=== PATIENT | female | born 1985 | race Caucasian/White ===

== ENCOUNTER 2017-03-25 19:27 | Inpatient (IN) | payer SELFPAY ==
[2017-03-25] MEDS ORDERED: NS 1,000 ML IV ONE (19:51)
--- NOTE | 2017-03-25 20:15 | EDPHY ---
H & P Stated Complaint: SI with OD, approx x25 10mg since this am, Hx of depression Source: Patient, Family, RN/MD Exam Limitations: No limitations - Medical/Surgical History Hx Asthma: No Hx Chronic Respiratory Disease: No Hx Diabetes: No Hx Cardiac Disease: No Hx Renal Disease: No Hx Cirrhosis: No Hx Alcoholism: Yes Hx HIV/AIDS: No Hx Splenectomy or Spleen Trauma: No Other PMH: depression, dystonia, addenoidectomy HPI/ROS: CHIEF COMPLAINT: Attempted suicide, Ambien overdose, NyQuil overdose HISTORY OF PRESENT ILLNESS: Patient presents with mother and friend of the mother. The mother and patient report that she ingested pills with intent to harm herself today. The patient says that she took approximately 25 of her mother's 10 mg Ambien pills between 10:00 a.m. and 2:00 p.m.. She did so with intent to kill herself. She does not want to harm herself at this time but admits to doing so with the intent of killing herself. She then reports drinking a small amount of NyQuil this morning. She then drank further amount of NyQuil this evening. She is unable to quantify the volume of this. She does describe physically and diluted in some water. She last ingested the NyQuil at 7:00 p.m.. This is per the mother who took the drink away from her in route. She has a history of depression and previous suicide attempt by cutting her arms and ingestion of pills and illegal substances in the past. She was last admitted for suicidal attempt 2 years ago. She does not see a psychiatrist or counselor on a regular basis. She lives in [place] most of her time and is here with her family at this time. She arrives voluntarily with her mother. No M1 was completed prior to arrival. No other associated complaints or modifying factors. PSYCHIATRIC DIAGNOSES: Depression, previous suicidal ideation and cutting of the arms. Movement disorder PRIOR PSYCHIATRIC EVALUATIONS: A 2 years ago. No current therapy or care M1/DETAINER: 8:[address] Delgado REVIEW OF SYSTEMS: Ten systems reviewed and are negative unless otherwise noted in the HPI EXAMINATION General Appearance: Alert, no distress Head: normocephalic, atraumatic Eyes: Pupils equal and round, no conjunctival pallor or injection ENT, Mouth: Mucous membranes moist Neck: Normal inspection, supple, non-tender Respiratory: Lungs are clear to auscultation Cardiovascular: Regular rate and rhythm Gastrointestinal: Abdomen is soft and nontender Back: non-tender, no bony abnormalities Neurological: GCS 15. A&O, nonfocal, normal gait. Mild dystonia that is reportedly baseline. Skin: Warm and dry, no rash. There are superficial skin lacerations on the volar aspect of both forearms. These are subacute. Extremities: Nontender, no pedal edema Psychiatric: Flat affect. Admits to suicidal ideation this morning. She currently denies wanting to harm herself DIFFERENTIAL DIAGNOSES: Including but not limited to overdose, suicide attempt, suicidal ideation, somnolence, dehydration, acidosis MDM: 8:10 p.m. Attempted suicide by twenty five 10 mg Ambien pills between 10:00 a.m. at 2:00 p.m. today. She is remorseful this but does admit to doing so. She had intent to kill herself. She is cooperative and calm at this time. She has baseline is 20 per mother bedside. I have completed an M1 form, this has been signed by Dr. Delgado. She remains cooperative and in no acute distress at this time. Will monitor her with cardiac monitoring, pulse oximetry due to the attempted overdose. 8:30 p.m. Notified by a RN Virgil. He discussed with poison control. Case #[id number]. There is no recommendation for the Ambien ingestion. There is a recommendation of a 4 hour Tylenol level due to the ingestion of the NyQuil cough medicine. I have rediscussed this with the family, both the family and patient say that she last drank the NyQuil at around 7:00 p.m.. We will obtain LFTs and a 4 hour level at appropriate time. She remains cooperative at this time. 10:20 p.m. LFTs reveal a mild transaminitis. Due to this we of contacted poison Control again. I discussed the case with Ralph. Duty LFT elevation, he recommends that we initiate the N-acetylcysteine protocol. They recommend rechecking that Tylenol level at 1:00 a.m. prior to the last 1st bag administration. Routine protocol instructions. At this time will contact hospitalist for admission. Additionally I have updated the patient and her mother bedside regarding the findings and the scenario. She remains awake and alert in no acute distress. 10:[address] Delgado as discussed the case with Dr. Daniel. He has admitted the patient to ICU. She is admitted in stable condition. SUPERVISION: Patient was evaluated in conjunction with the supervising physician. Please see their note for details. (Laci Byrd) Constitutional: Initial Vital Signs Temperature (C) 37.3 C 03/25/17 19:52 Heart Rate 80 03/25/17 19:52 Respiratory Rate 14 03/25/17 19:52 Blood Pressure 130/84 H 03/25/17 19:52 O2 Sat (%) 95 03/25/17 19:52 O2 Delivery Mode Room Air Allergies/Adverse Reactions: No Known Allergies Allergy (Unverified 10/27/09 18:13) Home Medications: Medication Instructions Recorded Zolpidem Tartrate [Ambien 10 mg] 10 mg PO HS 10/27/09 Citalopram [CeleXA] 20 mg PO DAILY 03/25/17 clonazePAM [klonoPIN (*)] 1 mg PO BID 03/25/17 Medical Decision Making - Diagnostics EKG Interpretation: 12-lead EKG interpreted by me; official reading is in trace master. My interpretation is sinus rhythm with nonspecific anterior T-wave abnormalities rate 62. Otherwise normal intervals. (Konrad Delgado) Other Provider: PHYSICIAN DOCUMENTATION: The patient was evaluated and managed by the Physician [employer] and myself. I have reviewed the chart and agree with the findings and plan of care as documented. In addition, I examined the patient myself at 2020. History confirmed as overdose with attempt to harm self. Physical findings as follows: Patient alert and talking, placed on a mental health hold by Laci STEWART and myself. 2215: Acetaminophen 16 and elevated liver function tests, probably at least 2 separate NyQuil/acetaminophen ingestions. Discussed with poison control by Carson CHOI and [facility] recommends admission with IV N-acetylcysteine protocol. Total critical care time 15 minutes. I am the secondary supervising physician. (Konrad Delgado) - Data Points Laboratory Results: Laboratory Results 03/25/17 20:07 03/25/17 20:07 Medications Given: Discontinued Medications Sodium Chloride (Ns) 1,000 mls @ 0 mls/hr IV ONCE ONE; Wide Open PRN Reason: Protocol Stop: 03/25/17 19:52 Last Admin: 03/25/17 19:57 Dose: 1,000 mls Acetylcysteine 7,050 mg/ (Dextrose) 200 mls @ 200 mls/hr IV ONCE ONE Stop: 03/25/17 23:59 Last Admin: 03/25/17 23:02 Dose: 200 mls Acetylcysteine 2,350 mg/ (Dextrose) 500 mls @ 125 mls/hr IV ONCE ONE Stop: 03/26/17 03:59 Last Admin: 03/26/17 00:37 Dose: 500 mls Departure - Departure Disposition: [facility] Acute Clinical Impression: Suicidal ideation, Abnormal liver function Deliberate medication overdose Qualifiers: Encounter type: initial encounter Qualified Code(s): T50.902A - Poisoning by unspecified drugs, medicaments and biological substances, intentional self-harm , initial encounter Acetaminophen overdose Qualifiers: Encounter type: initial encounter Injury intent: intentional self-harm Qualified Code(s): T39.1X2A - Poisoning by 4-Aminophenol derivatives, intentional self-harm, initial encounter Condition: Fair
[2017-03-25 20:18] LABS: % IMMATURE GRANULYOCYTES 0.4 % (0.0-1.1); ABSOLUTE IMMATURE GRANULOCYTES 0.02 10^3/uL (0.00-0.10); ADD DIFF? NO; ADD MORPH? NO; ADD SCAN? NO; ATYPICAL LYMPHOCYTE FLAG 30 (0-99); FRAGMENT RBC FLAG 0 (0-99); HEMATOCRIT 34.2 % (38.0-47.0); HEMOGLOBIN 11.8 g/dL (12.6-16.3); LEFT SHIFT FLG 0 (0-99); LIPEMIA HEMOLYSIS FLAG 90 (0-99); MEAN CELL HEMOGLOBIN 35.1 pg (27.9-34.1); MEAN CELL HEMOGLOBIN CONCENTR. 34.5 g/dL (32.4-36.7); MEAN CELL VOLUME 101.8 fL (81.5-99.8); MEAN PLATELET VOLUME 9.4 fL (8.7-11.7); PLATELET CLUMPS FLAG 0 (0-99); PLATELET COUNT 285 10^3/uL (150-400); RED BLOOD CELL COUNT 3.36 10^6/uL (4.18-5.33); RED CELL DISTRIBUTION WIDTH 12.9 % (11.5-15.2)
--- NOTE | 2017-03-25 20:23 | CPEKG ---
Heart Rate: 62 RR Interval: 968 P-R Interval: 164 QRSD Interval: 108 QT Interval: 412 QTC Interval: 419 P [place]: 53 QRS [place]: 41 T Wave [place]: 13 EKG Severity - BORDERLINE ECG - EKG Impression: SINUS RHYTHM EKG Impression: BORDERLINE T ABNORMALITIES, ANTERIOR LEADS Electronically Signed By: Konrad Delgado 25-Mar-2017 20:42:38
[2017-03-25 20:31] LABS: ANION GAP 14 mEq/L (8-16); CARBON DIOXIDE 20 mEq/l (22-31); CHLORIDE 106 mEq/L (97-110); CREATININE 0.7 mg/dL (0.6-1.0); ETHANOL SERUM < 10 mg/dL (0-10); GLOMERULAR FILTRATION RATE > 60; GLUCOSE 82 mg/dL (70-100); POTASSIUM 4.4 mEq/L (3.5-5.2); SALICYLATE < 1.0 mg/dL (2.0-20.0); SODIUM 140 mEq/L (134-144)
[2017-03-25 21:09] LABS: INR 0.99 (0.83-1.16)
[2017-03-25 21:11] LABS: ALBUMIN 4.4 g/dL (3.5-5.0); BILIRUBIN-CONJUGATED 0.7 mg/dL (0.0-0.5); BILIRUBIN-UNCONJUGATED 0.3 mg/dL (0.0-1.1)
[2017-03-25] MEDS ORDERED: ACETYLCYSTEINE IV PROTOCOL 1 EACH MISC SCH (22:15)
[2017-03-25] MEDS ORDERED: D5W IV ONE (23:00)
[2017-03-25] MEDS ORDERED: ACETYLCYSTEINE IV ONE (23:00)
[2017-03-25 23:32] LABS: PHENCYCLIDINE URINE BCH < 6 ng/ml (NEGATIVE); PHENCYCLIDINE URINE BCH NEGATIVE (NEGATIVE); TETRAHYDROCANNABINOL URINE < 5 ng/mL (NEGATIVE); TETRAHYDROCANNABINOL URINE NEGATIVE (NEGATIVE)
--- NOTE | 2017-03-26 01:18 | GHP ---
[f rep st] HISTORY AND PHYSICAL DATE OF ADMISSION: 03/25/2017 CHIEF COMPLAINT: Attempted overdose. HISTORY OF PRESENT ILLNESS: This is a 31-year-old female, accompanied by her mother as well as her neighbor, who presents after attempted overdose. She apparently this morning took about 25 Ambien. This was around 10 a.m. She then woke up, her mother came over. She went into the bathroom and dr ank a bottle of NyQuil. Her mother does not have the bottle with her. Apparently, she drank about half a cup of NyQuil. She also had a knife in the bathroom. She was clearly depressed at the time. Her mother stopped her before she was able to cut herself. Mother then brought her to the emergen cy department. She had mixed the NyQuil with water and proceeded to drink a little bit more of the NyQuil on the way to the emergency department. She has a history of mental health issues. Her mother says that she is not overtly suicidal, though she had significant depression and more wants to numb this pain. She has a history of dystonia whi ch causes her to have an odd speech, which her mother says makes her very self-conscious. She has t ried to kill herself multiple times in the past. She has also been cutting herself recently, though none within the last few weeks. She has a history of heavy drinking, though she has not had anythi ng to drink for 2 weeks. She had a prescription for Klonopin and she has taken a significant amount over the past 2 weeks. When I am seeing the patient, she is very somnolent. She will arouse to voice. She is not providin g much history at this point, however. PAST MEDICAL/SURGICAL HISTORY: 1. Dystonia, she had a recent MRI done in [facility]; results are not available currently. 2. Insomnia. 3. Anxiety. 4. Depression. MEDICATIONS: Mother tells me she takes Ambien, NyQuil, Klonopin, Celexa. ALLERGIES: No known drug allergies. FAMILY HISTORY: Father was an alcoholic. SOCIAL HISTORY: She drinks as above. She lives in the [facility], came down to the [place] about 1 week ago. Other abuse history as above. She has done cocaine but never IV drugs, p er her mother. REVIEW OF SYSTEMS: A 10-point review of systems is conducted and is negative except per HPI. PHYSICAL EXAM: VITAL SIGNS: Blood pressure is 110/67, heart rate 72, respiration rate 12, saturati ng 93% on room air. Temperature is 37.3. GENERAL: The patient is a pleasant female who is quite s omnolent, arouses to voice. HEENT: Normocephalic, atraumatic. CARDIOVASCULAR: Regular rate and r hythm. No murmurs, rubs, or gallops. PULMONARY: Lungs clear to auscultation bilaterally. ABDOMEN : She has a soft abdomen, though she does have some right upper quadrant tenderness with negative M urphy sign. SKIN: Shows her to have mild superficial, well healing cuts on her bilateral forearms. She also has some similar aged cuts on her abdomen that are very superficial and healing well. NE UROLOGIC: She is quite somnolent, though she does arouse. She is moving all extremities. Cranial nerves 2-12 are intact. She has no nystagmus. PSYCHIATRIC: Exam is unobtainable. LABS: Hemoglobin 11.8, MCV is 101. INR is 0.99. Basic metabolic panel is normal. ALT is 575, AST is 84, alkaline phosphatase is normal. Conjugated bilirubin slightly high at 0.7. Tox screen is n egative. Salicylates are less than 1. Acetaminophen is 16. Alcohol level is negative. DATA: 1. I discussed this with SHIVA Michelle, as well as Dr. Chan. We will admit her to the ICU. 2. I personally viewed and interpreted her EKG. This shows sinus rhythm. She has somewhat biphasi c T-wave in leads V3 and V4. Otherwise, it is relatively unremarkable. ASSESSMENT AND PLAN: A 31-year-old female with intentional overdose with NyQuil as well as Ambien. 1. NyQuil overdose: This contains acetaminophen as well as potentially dextromethorphan, doxylamin e, phenylephrine. She has significantly elevated LFTs, though her acetaminophen level is negative. Poison Control case #[id number]. Even though she has a low Tylenol level, recommend NAC protocol. We will recheck a Tylenol level in a few hours as well as in the morning. She does not have an antich olinergic toxidrome, nor did she have a sympathomimetic toxidrome. 2. Ambien overdose: Very short half-life. This was taken in the morning. Per Poison Control, no further workup is necessary. I do note that she is very somnolent; however, her vitals are stable. 3. Elevated liver function tests: I am not sure that this is related to Tylenol. It is not the no rmal ratio for alcohol, either, though she does have macrocytic anemia. We will go ahead and check a right upper quadrant ultrasound as she was tender to palpation with an equivocal Pascual sign. We will also check a hepatitis panel. We will recheck her LFTs in the morning. 4. Suicide attempt: She is on M1 hold. She will need a mental health evaluation at some point. 5. Dystonia: She had an MRI done recently though her mother does not have the results of this. Vicki hayward will attempt to get this. It is not clear exactly what the underlying diagnosis is. The MRI was done in [facility]. 6. Somnolence: We will monitor her closely in the ICU. Her vitals are stable. /[id number]/MODL
[2017-03-26] MEDS ORDERED: ACETYLCYSTEINE IV ONE ×3 (04:00→21:00)
[2017-03-26] MEDS ORDERED: D5W IV ONE ×3 (04:00→21:00)
[2017-03-26 05:46] LABS: % IMMATURE GRANULYOCYTES 0.5 % (0.0-1.1); ABSOLUTE IMMATURE GRANULOCYTES 0.02 10^3/uL (0.00-0.10); ADD DIFF? NO; ADD MORPH? NO; ADD SCAN? NO; ATYPICAL LYMPHOCYTE FLAG 60 (0-99); FRAGMENT RBC FLAG 0 (0-99); HEMOGLOBIN 11.8 g/dL (12.6-16.3); LEFT SHIFT FLG 0 (0-99); LIPEMIA HEMOLYSIS FLAG 80 (0-99); MEAN CELL HEMOGLOBIN 34.7 pg (27.9-34.1); MEAN CELL HEMOGLOBIN CONCENTR. 33.7 g/dL (32.4-36.7); MEAN CELL VOLUME 102.9 fL (81.5-99.8); MEAN PLATELET VOLUME 9.3 fL (8.7-11.7); PLATELET CLUMPS FLAG 20 (0-99); PLATELET COUNT 274 10^3/uL (150-400); RED CELL DISTRIBUTION WIDTH 12.9 % (11.5-15.2)
[2017-03-26 06:00] LABS: ALANINE AMINOTRANSFERASE 462 IU/L (9-52); ALBUMIN 3.2 g/dL (3.5-5.0); ALKALINE PHOSPHATASE 42 IU/L (38-126); ANION GAP 10 mEq/L (8-16); ASPARTATE AMINOTRANSFERASE 53 IU/L (14-46); BILIRUBIN,TOTAL 0.7 mg/dL (0.1-1.4); CALCIUM 9.1 mg/dL (8.5-10.4); CARBON DIOXIDE 22 mEq/l (22-31); CHLORIDE 107 mEq/L (97-110); CREATININE 0.6 mg/dL (0.6-1.0); GLOMERULAR FILTRATION RATE > 60; GLUCOSE 98 mg/dL (70-100); POTASSIUM 4.1 mEq/L (3.5-5.2); SODIUM 139 mEq/L (134-144); TOTAL PROTEIN 5.8 g/dL (6.3-8.2)
--- NOTE | 2017-03-26 08:35 | CPEKG ---
Heart Rate: 57 RR Interval: 1053 P-R Interval: 136 QRSD Interval: 94 QT Interval: 432 QTC Interval: 421 P [place]: 62 QRS [place]: 51 T Wave [place]: 22 EKG Severity - NORMAL ECG - EKG Impression: SINUS RHYTHM Electronically Signed By: Alberto Harris 26-Mar-2017 23:23:58
[2017-03-26 16:31] LABS: INR 1.09 (0.83-1.16)
[2017-03-26 16:43] LABS: ALBUMIN 3.8 g/dL (3.5-5.0); BILIRUBIN,TOTAL 0.8 mg/dL (0.1-1.4); BILIRUBIN-CONJUGATED 0.4 mg/dL (0.0-0.5); BILIRUBIN-UNCONJUGATED 0.4 mg/dL (0.0-1.1); TOTAL PROTEIN 6.6 g/dL (6.3-8.2)
--- NOTE | 2017-03-26 16:53 | HOSPPROG ---
Hospitalist Progress Note Assessment/Plan: assessment: 31-year-old female presents with intentional polypharmacy overdose and suicide attempt Plan: 1. intentional polypharmacy overdose. This was reportedly in acute suicide attempt and patient was placed on M1 hold, consisted of NyQuil and Ambien - discussed with Dr. Jr Gustafson, he recommends contacting poison Control and determining whether the N-acetylcysteine can be concluded after 16 hours versus completing the full protocol based on liver panel - I discussed the case with poison Control and they have told me that if the AST declines to 50% of the presenting level, then it would be safe to discontinue the protocol after 16 hours, if not, then they would recommend continuing for the full protocol -will continue to monitor liver panel -will avoid neck will and Ambien - she will be medically cleared after 7:00 p.m. and I will contact [facility] for psychiatric evaluation thereafter 2. anxiety and depression. Chronic, acutely exacerbated, continue her on her home medications 3. Continuous benzodiazepine dependency. Continue her on her home dosage of Klonopin to avoid withdrawal 4. Dystonia. 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 steatohepatitis. Suspected chronic, most likely secondary to chronic alcoholism and potentially affecting her liver panel -that being said, we do not have access to any baseline liver panel and we have to assume that her elevation in liver enzymes may be acutely related to her recent Tylenol ingestion - the an acetylcysteine is liver protecting and should be continued in the above situation - liver ultrasound demonstrating fatty liver, no obstructive pathology Diet. Regular Prophylaxis. Moderate risk patient given mobility, Lovenox 40 Code. Full Disposition. Anticipated discharge is 03/27/2017, pending [facility] evaluation once patient is medically cleared Subjective: patient reports she has some neck discomfort Objective: Vital Signs Temp Pulse Resp BP Pulse Ox 36.9 C 63 22 H 139/80 H 98 03/26/17 16:00 03/26/17 16:00 03/26/17 16:00 03/26/17 16:00 03/26/17 16:00 Laboratory Results 03/26/17 05:10 03/26/17 05:10 03/25/17 03/26/17 03/27/17 05:59 05:59 05:59 Intake Total 3125 300 Balance 3125 300 PT 14.0 SEC (12.0-15.0) 03/26/17 16:05 INR 1.09 (0.83-1.16) 03/26/17 16:05 - Physical Exam Constitutional: no apparent distress, not in pain, chronically ill appearing, No uncomfortable Cardiovascular: regular rate and rhythym, no murmur, rub, or gallop Respiratory: no respiratory distress, no rales or rhonchi, clear to auscultation Gastrointestinal: normoactive bowel sounds, soft, non-tender abdomen ( in the right upper quadrant), no palpable masses, No distension Skin: other ( healing, superficial cut de anda left upper extremity without any surrounding erythema, no track de anda in her antecubital fossa, no unusual abrasions or cigarette joycelyn) Neurologic: AAOx3, sensation intact bilaterally, other ( visible dystonia of her neck with tremulousness), No weakness ( motor strength 5/5 bilateral lower extremities) Psychiatric: interacting appropriately, not anxious, flat affect, No agitated ICD10 Worksheet Patient Problems: Problems Problem Status Onset Suicidal ideation Acute Deliberate medication overdose Acute Acetaminophen overdose Acute Abnormal liver function Acute
[2017-03-26] MEDS: CYCLOBENZAPRINE 10 MG TAB PO PRN (17:00)
[2017-03-26] MEDS: clonazePAM 1 MG TAB PO SCH (20:22)
[2017-03-27 05:28] LABS: ALANINE AMINOTRANSFERASE 400 IU/L (9-52); ALBUMIN 3.6 g/dL (3.5-5.0); ALKALINE PHOSPHATASE 56 IU/L (38-126); ANION GAP 12 mEq/L (8-16); ASPARTATE AMINOTRANSFERASE 62 IU/L (14-46); BILIRUBIN,TOTAL 0.7 mg/dL (0.1-1.4); CALCIUM 9.2 mg/dL (8.5-10.4); CARBON DIOXIDE 20 mEq/l (22-31); CHLORIDE 110 mEq/L (97-110); CREATININE 0.6 mg/dL (0.6-1.0); GLOMERULAR FILTRATION RATE > 60; GLUCOSE 104 mg/dL (70-100); POTASSIUM 3.5 mEq/L (3.5-5.2); SODIUM 142 mEq/L (134-144); TOTAL PROTEIN 6.3 g/dL (6.3-8.2)
[2017-03-27 08:27] VITALS: RESP 21; O2SAT 98
[2017-03-27] MEDS: clonazePAM 1 MG TAB PO SCH (08:32)
[2017-03-27] MEDS ORDERED: CITALOPRAM 20 MG TAB PO SCH (09:00)
--- NOTE | 2017-03-27 11:31 | PDDCSUM ---
Discharge Summary Discharge Summary: DISCHARGE SUMMARY FOLLOW-UP ITEMS: Outpatient neurology follow-up appointment DATE OF ADMISSION: 03/25/17 DATE OF DISCHARGE: 03/27/2017 DISCHARGE DIAGNOSES: 1. Intentional polypharmacy overdose 2. Suicide attempt 3. Chronic anxiety and depression 4. Continuous benzodiazepine dependency 5. Chronic dystonia 6. Suspected chronic hepatic steatosis CONSULTATIONS: Mental health, critical care, poison Control PROCEDURES / IMAGING: Liver ultrasound demonstrating fatty liver no obstruction CHIEF COMPLAINT: Intentional polypharmacy overdose SUBJECTIVE: Patient is feeling well at time of discharge, she is looking forward to mental health assistance PHYSICAL EXAM ON DISCHARGE: Visible dystonia of the neck, facing to the left, with some dyskinetic twitching , alert awake oriented x3, hope full disposition LABS ON DISCHARGE: ALT 400, AST 62, alk-phos 56 HOSPITAL COURSE BY PROBLEM: 1. Intentional polypharmacy overdose. Consisting of Ambien and NyQuil/DayQuil. Poison Control was notified and given patient's elevation in liver enzymes as well as positive Tylenol level, they recommended an acetylcysteine infusion. Patient's AST and ALT did slightly improve and her Tylenol level became undetectable. She was continued on a full 24 hour infusion given her liver enzyme levels, and the belief that she would require hepatic protection a even if she did have chronic hepatic steatosis secondary to alcoholism. 2. Suicide attempt. Acute, patient requires inpatient mental health stabilization and will be transferred to inpatient Behavioral Health at this time. 3. Chronic anxiety and depression. Acutely exacerbated, patient's home medications were continued. 4. Continuous benzodiazepine dependency. Patient was continued on her home dosage of Klonopin. 5. Chronic dystonia. Patient has chronic neck dystonia resulting in some dyskinetic movements and intermittent pain. Flexeril was added as needed for pain control. The patient would like an outpatient neurology consultation to help address this issue as she believes that is most likely resulting in poor self image and exacerbating her anxiety and depression. I have placed the contact information for Dr. Matias in the chart for follow-up. 6. Suspected hepatic steatosis. Patient's AST and ALT are both elevated without any evidence of biliary obstruction on ultrasound, the patient does have evidence of fatty liver and a history of alcoholism. She most likely has underlying hepatic steatosis and I have counseled the patient and her mother that complete cessation of alcohol is the most likely indicated treatment. DISCHARGE MEDICATIONS: Please see official discharge medication reconciliation sheet in chart , addition of Flexeril as needed 10 mg 3 times daily, continue other medications. DISCHARGE INSTRUCTIONS: Patient will be discharged to inpatient Behavioral Health at this time, should follow up with outpatient neurology thereafter. TIME SPENT: Greater than 30 minutes were spent on direct patient care, as well as discharge planning and preparation.
[2017-03-27 12:24] VITALS: BP 120/74; PULSE 63; TEMP 98.2
[2017-03-27] MEDS: CYCLOBENZAPRINE 10 MG TAB PO PRN (12:55)
== END 2017-03-27 13:01 | DRG 918 ==
LOC: F2N 23:59
PROVIDERS: ADMIT Student in an Organized Health Care Education/Training Program; ATTEND Student in an Organized Health Care Education/Training Program
DX: T42.6X2A Poisoning by other antiepileptic and sedative-hypnotic drugs, intentional self-harm, initial encounter (principal); F13.20 Sedative, hypnotic or anxiolytic dependence, uncomplicated; G24.8 Other dystonia; T45.0X2A Poisoning by antiallergic and antiemetic drugs, intentional self-harm, initial encounter; F41.8 Other specified anxiety disorders; K76.0 Fatty (change of) liver, not elsewhere classified
CPT/HCPCS: 80305; 80307; G0472; G0480; J0132

== ENCOUNTER 2017-03-27 13:28 | Inpatient (IN) | payer MEDICAID ==
[2017-03-27] MEDS ORDERED: MAGNESIUM HYDROXIDE 30 ML UDCUP PO PRN (14:59)
[2017-03-27] MEDS ORDERED: NICOTINE POLACRILEX 2 MG GUM B PRN (14:59)
[2017-03-27] MEDS: LORazepam 0.5 MG TAB PO PRN (16:18)
[2017-03-27] MEDS: CYCLOBENZAPRINE 10 MG TAB PO PRN (16:19)
[2017-03-27] MEDS: clonazePAM 1 MG TAB PO SCH (20:10)
[2017-03-28] MEDS: CYCLOBENZAPRINE 10 MG TAB PO PRN ×3 (00:31→08:20)
[2017-03-28] MEDS: LORazepam 0.5 MG TAB PO PRN ×3 (00:31→23:01)
--- NOTE | 2017-03-28 01:30 | BCON ---
[f rep st] BEHAVIORAL HEALTH CONSULTATION INTERNAL MEDICINE CONSULTATION DATE OF CONSULTATION: 03/27/2017 REFERRING PHYSICIAN: Dr. Velázquez REASON FOR REFERRAL: Medical clearance for inpatient behavioral health stay. HISTORY OF PRESENT ILLNESS: This patient was admitted to [facility]ry from [facility] where she was admitted 2 days ago with suicidal ideation and suicide attempt by overdose. She overdosed on zolpidem as well as NyQuil. Hospital evaluation revealed elevated hepatic transaminases, most prominently the ALT and a mildly elevated acetaminophen level. She was treated with N-acetylcysteine in case there had been a contribution of acetaminophen to her transaminase elevation. An abdominal ultrasound revealed fatty infiltration of the liver, which was considered consistent with history of alcohol abuse and dependence. She was stabilized after 24 hours of N-acetylcysteine infusion and admitted for further psychiatric care. She currently complains of neck pain related to dystonia. She has had the dystonia for several months. It occurred initially while she was living in [place]. She reports she has had an MRI of the brain in [place]. She reports pain related to the dystonia, for which she says cyclobenzaprine is somewhat helpful. PAST MEDICAL HISTORY: 1. Dystonia. 2. Insomnia. 3. Anxiety. 4. Depression. PAST SURGICAL HISTORY: She denies any history of surgeries. MEDICATIONS: She was taking zolpidem, NyQuil, clonazepam and citalopram. ALLERGIES: There are no known drug allergies. FAMILY HISTORY: Father was an alcoholic. She denies any family history of dystonia or other neurologic disease. SOCIAL HISTORY: She reports no alcohol for approximately a doch-pty-f-half but has a history of heavy alcohol use. She is living with her mother in [place]. She has a history of cocaine use as well as, per her report, a 1 time use of MDMA. She is a former smoker. 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 REVIEW OF SYSTEMS: Other than as in HPI, she reports a good appetite. She denies recent weight change. She denies fevers or chills. She denies current symptoms of alcohol withdrawal, though she is somewhat tremulous. She does not have sweats. She denies nausea, vomiting, constipation, or diarrhea. She denies urinary frequency or dysuria. She denies cough or dyspnea. She denies fevers or chills. PHYSICAL EXAM: VITAL SIGNS: Blood pressure is 116/80, heart rate is 59, respiratory rate is 14, oxygen saturation is 96% on room air. Temperature is 37.4 degrees centigrade. Her weight is 46.7 kg for a body mass index of 19.5. GENERAL: This is a well-nourished, well-developed woman, appears her chronologic age, with a marked neck dystonia with flexion to the right. Cooperative, and in no acute distress. HEENT: Extraocular movements are intact. Pupils are equal, round, and reactive to light. Mucous membranes are moist. Dentition is in good condition. NECK: A right flexion dystonia, and is otherwise without thyromegaly. HEART: Regular rate and rhythm without murmurs, rubs, or gallops. LUNGS: Clear to auscultation bilaterally. ABDOMEN : Soft, nontender, nondistended with normoactive bowel sounds. EXTREMITIES: There is no cyanosis, clubbing, or edema. NEUROLOGIC: She is alert and oriented x3. Cranial nerves 2-12 are grossly intact. She has a marked dystonia. There is no focal weakness. Sensation is intact to light touch. She has a mild resting tremor. She has abnormal prosody to her voice with frequent somewhat rhythmic halting, which appears possibly consistent with cerebellar disease. Deep tendon reflexes are 2+ bilaterally at the biceps, patella and Achilles tendons. LABORATORY STUDIES: From her hospitalization, CBC revealed anemia with a hemoglobin of 11.8 and hematocrit of 34.2, she had an elevated MCV at 101.8; otherwise, CBC was overall within normal limits. Coagulation studies were normal. Serum chemistry on the day of admission to inpatient [facility] revealed overall normal renal function and electrolytes but for a slightly low carbon dioxide at 20 and a slightly high glucose at 104. Liver function transaminases had improved; initially, AST was 84 an ALT was 575, and today AST was 62, and ALT was 400; otherwise, liver function tests were within normal limits. Beta hCG was negative for . Toxicology screen in the urine was negative for substances of abuse and in the serum was negative for salicylates or ethyl alcohol. Initially, her acetaminophen level was in the therapeutic range at 16 mcg/mL. Serology was negative for hepatitis A, B or C. Abdominal ultrasound showed diffuse increased echogenicity of the liver, suggesting fatty infiltration. ASSESSMENT AND RECOMMENDATIONS: 1. Mental health issues. Pending further evaluation and management per Psychiatry and the mental health team. 2. Neck dystonia. Query whether it might be related to ingestion of a synthetic hallucinogen, which she reports was MDMA. Agree with referral to Neurology. She might have considerable relief from the botulinum toxin injection, and she might be best served by referral to Movement Disorder Specialist at the [place], but this can be determined after evaluation by Dr. Matias of Neurology. 3. Steatohepatitis, likely related to alcohol abuse and dependence. 4. Anemia with an elevated MCV, also consistent with ethanol toxicity. 5. Dystonic voice implicates the possibility of cerebellar involvement. Await further evaluation by Neurology. I see no medical contraindications to this patient's continued stay in the inpatient behavioral health unit or to any psychiatric medications or procedures. Thank you very much for including me in the care of this patient. Please do not hesitate to contact me or the hospitalist service should there be need for further medical evaluation. /[id number]/MODL MTDD
[2017-03-28] MEDS: clonazePAM 1 MG TAB PO SCH ×2 (08:20→20:05)
[2017-03-28] MEDS: IBUPROFEN 600 MG TAB PO PRN ×2 (09:49→20:05)
[2017-03-28] MEDS: CITALOPRAM 20 MG TAB PO SCH (12:14)
--- NOTE | 2017-03-28 16:17 | BAPA ---
[f rep st] ADMISSION PSYCHIATRIC ASSESSMENT DATE OF SERVICE: 03/28/2017 REASON FOR ADMISSION: Patient is a 31-year-old female with a history of multiple previous suicide attempts who presented from home after she had taken a polysubstance overdose including ove u-ugq-[id number] medications Ambien, NyQuil, and possibly Tylenol. She gave no particular reason for d oing this, though stated that she had felt frustrated and had been sober from alcohol for 2 weeks. She states that "everything just kind of built up." She had been living in [place] in a cabin which she stays frequently when she is not living in [place]. She states that she had been drinking and using crack cocaine on a daily basis for several months and decided to get clean and sober. She ret urned to [place] and has not used or drank since that time but states that her anxiety and had been increasing and her dystonia had been worsening. She has a chronic dystonia in her neck that is deven nful and disabling and also keeps her from socializing due to embarrassment for her physical appeara nce. She states that her mood has been low, though she had not been contemplating suicide. She chaudhry s note that she was cutting herself and burning herself with a heated paper clip on several occasion s over the last couple months. She states this is new behavior for her and was not suicidal but she felt out of control over this, especially when she was intoxicated. Today, she states that she "wi ll never try to kill myself again." She states, "I think I just do that to either let off steam or get attention, but I don't wanna ." She also states that she recognized the extent of her alcoho l abuse, having had recent ultrasound showing a fatty liver and showing significant bone marrow supp ression. She states that she wants to redouble her efforts at sobriety, return to and quit drink ing and using drugs. PAST PSYCHIATRIC HISTORY: Significant for numerous previous psychiatric hospitalizations. She has apparently had 3 hospitalizations in the last year and a half, all in [place]. She was previously at this facility back in October of 2009. At that time, she was seen by Dr. Yi and diagnosed w ith depression, anxiety, alcohol dependence. She currently receives her medications through her [facility] care provider, [facility]. She has a history of multiple previous overdos e attempts in a similar fashion to this. ALLERGIES: No known medical allergies. CURRENT MEDICATIONS: The patient states that she takes clonazepam 2 mg b.i.d., citalopram 20 mg gerardo ly, Flexeril 10 mg every 8 hours as needed for dystonia. PAST MEDICAL HISTORY: Significant for this dystonia that has existed since she had a head injury. The dystonia causes her significant pain in her neck. Patient has recently been diagnosed with fatt y liver and anemia, likely related to alcohol use. SOCIAL HISTORY: Patient is single. She has no dependents. She is not currently involved in a rela tionship. She lives between her mother's home in [place] and her cabin in [facility]. She states that there is no running water or electricity, but she likes to go there to get away. She states s he will spend weeks at a time there alone. She reports no other specific stresses at this time. SUBSTANCE ABUSE HISTORY: Patient states that she uses alcohol "as much as I can get, whenever I can get it." She states that she drinks to the point of intoxication, blackout, or unconsciousness on a daily basis. She has not drunk in 2 weeks. She has a history of cocaine abuse, smoking crack zayda ry day over the last several months. She also has used MDMA and other substances in the past as wel l. She states that she is currently committed to sobriety. ADMISSION LABORATORY: No additional labs were drawn. Labs from previous admission are reviewed and a mild anemia with an H and H of 3.4, and 11.8 with an MCV of 102.9 is noted. Liver function was s lightly elevated with AST of 84, ALT of 575 that decreased to 400 by the time of transfer. Beta hCG was negative. Urine drug screen showed no substances of abuse. Hepatitis screen was negative. MENTAL STATUS EXAMINATION: Reveals a small but healthy-appearing female. She is pleasant , cooperative, and interacts appropriately with the examiner. Her external appearance is most notab le for this dystonia to which she will keep her head cocked to the right and slightly turned. She a lso has notable central tremor with some chattering of her jaw and teeth when she tries to talk. He r affect is slightly blunted, though stable and appropriate. Her mood is described as "okay." Her thought process is linear and goal directed. Her thought content reveals no evidence of psychosis. She is alert and oriented to person, place, time, situation. Her sensorium is clear. Her intellec t appears to be average as evidenced by her educational and occupational histories, fund of knowledg e, and vocabulary. Her insight and judgment appear to be fair. IMPRESSION: 1. Major depressive disorder, recurrent, moderate to severe without psychosis. Recent suicide atte mpt via overdose. 2. Alcohol use disorder, severe. 3. Cocaine use disorder, moderate to severe. 4. Social isolation, lack of support. 5. Recurrent self-harm. The patient is a pleasant 31-year-old female with a history of recurrent depression with f eelings of helplessness, hopelessness, and worthlessness leading to acts of self-harm and overdose. This appears to be a recurrent pattern over the years and is worsened in this state of sobriety. S he states that she wants to work on this and seems genuine in that. PLAN: 1. We will admit the to behavioral health services inpatient unit on an M1 hold. 2. We will convert to a voluntary status at the end of the M1 hold. 3. We will engage the patient in individual, group, and milieu psychotherapies to better ascertain her current level of functioning and mental status. Will direct any adjustments in her psychopharma cologic regimen after these observations are completed. 4. We will place on suicide precautions to watch for further acts of self-harm, though she currentl y contracts for safety. 5. We will help patient develop an adequate discharge plan including AA and [facility]. 6. Estimated length of stay is 3-5 days. /[id number]/MODL
[2017-03-29] MEDS: clonazePAM 1 MG TAB PO SCH ×2 (07:54→20:17)
[2017-03-29] MEDS: CITALOPRAM 20 MG TAB PO SCH (07:54)
[2017-03-29] MEDS: IBUPROFEN 600 MG TAB PO PRN ×2 (08:24→15:49)
[2017-03-29] MEDS: LORazepam 0.5 MG TAB PO PRN ×2 (08:24→15:49)
[2017-03-29] MEDS: CYCLOBENZAPRINE 10 MG TAB PO PRN ×2 (11:01→20:18)
--- NOTE | 2017-03-29 20:26 | SOAPPROG ---
SOMIKE Progress Note Assessment/Plan: Assessment: Plan: 03/29/17 20:27 As above. Will CCM, work on d/c plan to include more family interaction with mother (who is a home health nurse that works six days a week.) Subjective: Pt seen, discussed with staff. She reports feeling "a lot better". Actively participating in groups. Open discussion re: her substance abuse. She continues to states she wants to remain C&S. Later in the afternoon became agitated that she couldn't receive both lorazepam and clonazepam. I acquiesced and restarted low-dose lorazepam until we can formulate a detox plan. Objective: Vital Signs Temp Pulse Resp BP Pulse Ox 36.6 C 80 12 101/72 97 03/29/17 19:06 03/29/17 19:06 03/29/17 06:00 03/29/17 19:06 03/29/17 19:06 MSE: Calm, coop. Affect is euthymic, stable, approp. Mood is "better" TP linear. TC reveals no psychosis. Denies current active SI. - Time Spent With Patient Time Spent With Patient: 35" ICD10 Worksheet Patient Problems: Problems Problem Status Onset Abnormal liver function Acute Acetaminophen overdose Acute Deliberate medication overdose Acute Suicidal ideation Acute
[2017-03-30] MEDS: IBUPROFEN 600 MG TAB PO PRN ×3 (02:41→20:29)
[2017-03-30] MEDS: LORazepam 0.5 MG TAB PO PRN ×3 (02:42→15:52)
[2017-03-30] MEDS: CITALOPRAM 20 MG TAB PO SCH (08:02)
[2017-03-30] MEDS: clonazePAM 1 MG TAB PO SCH ×2 (08:02→20:28)
[2017-03-30] MEDS: CYCLOBENZAPRINE 10 MG TAB PO PRN ×2 (08:03→15:52)
[2017-03-30] MEDS: MAG HYDROX/AL HYDROX/SIMETH 30 ML UDCUP PO PRN (15:11)
[2017-03-30] MEDS ORDERED: IBUPROFEN 200 MG TAB PO ONE (20:27)
--- NOTE | 2017-03-30 21:11 | SOAPPROG ---
SOAP Progress Note Assessment/Plan: Assessment: 31yo CF with severe EtOH/cocaine use d/o, chronic depression and SI, admitted s/ p polysubst OD. 03/30/17 16:06 per staff, slept 7.5hr. attending groups. Pt reports sleeping better, denied med side effects. Attending groups. Is interested in neuro consult and f/u as indicated for her dystonia. States only saw one once in [place] many years ago. Lists her helpful medications, notably Klonopin, flexaril, ibuprofen and lorazepam. knows their dosing frequency. States prn Ativan helps b/c klonopin not seeming to last long with BID dosing. Discussed options for med changes WITHOUT any increase in BZDs due to risks/ tolerance/abuse hx etc., and with goal to eventually taper off Ativan. Pt feels she'd like to try Klonopin divided dosing, as 1mg @8am, 1mg @1pm, and 2mg@ 8pm. prefers this to 1mg QID dosing or 1.5/1/1.5. Wants the 2mg at hs. Will start tomorrow. MSE: cooperative, good eye contact, dysarticulate as apparent baseline, with notable cervical dystonia chronic, good eye contact, mood "better", affect seemed euthymic, denied any SI/HI or any psychotic sxs. TP linear. i/j seem fair PLAN: Klonopin changes as above to from 2bid. Objective: Vital Signs Temp Pulse Resp BP Pulse Ox 36.4 C 90 14 107/65 98 03/30/17 06:24 03/30/17 06:24 03/30/17 06:24 03/30/17 06:24 03/30/17 06:24 - Time Spent With Patient Time Spent With Patient: 35min - Pending Discharge Pending Discharge Within 24 Hours: No Pending Discharge Within 48 Hours: No ICD10 Worksheet Patient Problems: Problems Problem Status Onset Abnormal liver function Acute Acetaminophen overdose Acute Deliberate medication overdose Acute Suicidal ideation Acute
[2017-03-31] MEDS: CYCLOBENZAPRINE 10 MG TAB PO PRN ×3 (00:45→21:20)
[2017-03-31] MEDS: LORazepam 0.5 MG TAB PO PRN ×3 (00:45→16:03)
[2017-03-31] MEDS ORDERED: clonazePAM 1 MG TAB PO SCH ×3 (03:30→20:00)
[2017-03-31] MEDS ORDERED: IBUPROFEN 200 MG TAB PO ONE (07:25)
[2017-03-31] MEDS: CITALOPRAM 20 MG TAB PO SCH (08:18)
[2017-03-31] MEDS: clonazePAM 1 MG TAB PO SCH ×3 (08:18→20:15)
[2017-03-31] MEDS: IBUPROFEN 600 MG TAB PO PRN ×2 (10:46→16:41)
--- NOTE | 2017-03-31 14:30 | SOAPPROG ---
DAVI Progress Note Assessment/Plan: Assessment: Plan: 03/29/17 20:27 As above. Will CCM, work on d/c plan to include more family interaction with mother (who is a home health nurse that works six days a week.) 03/31/17 14:30 Doing well. CCM. Likely d/c tomorrow if all is well. Subjective: Pt seen, discussed with staff. Reports feeling "a lot better since I got here. " States she is "learning a lot from the groups." Upbeat and positive. has completed her safety plan. Looking forward to returning to her mother's home after d/c. Objective: Vital Signs Temp Pulse Resp BP Pulse Ox 36.8 C 61 16 115/68 97 03/31/17 06:36 03/31/17 06:36 03/31/17 06:36 03/31/17 06:36 03/31/17 06:36 MSE: Calm, coop. Affect is euthymic, stable, approp. Mood is "good." TP linear. TC reveals no psychosis. - Time Spent With Patient Time Spent With Patient: 25" - Pending Discharge Pending Discharge Within 24 Hours: No Pending Discharge Within 48 Hours: No ICD10 Worksheet Patient Problems: Problems Problem Status Onset Abnormal liver function Acute Acetaminophen overdose Acute Deliberate medication overdose Acute Suicidal ideation Acute
[2017-04-01] MEDS: LORazepam 0.5 MG TAB PO PRN ×4 (00:26→16:19)
[2017-04-01 06:29] VITALS: RESP 14
[2017-04-01] MEDS: clonazePAM 1 MG TAB PO SCH ×3 (08:05→20:15)
[2017-04-01] MEDS: CITALOPRAM 20 MG TAB PO SCH (08:06)
[2017-04-01] MEDS: CYCLOBENZAPRINE 10 MG TAB PO PRN ×2 (08:12→20:16)
[2017-04-01] MEDS: IBUPROFEN 600 MG TAB PO PRN (12:00)
--- NOTE | 2017-04-01 14:08 | BDS ---
[f rep st] BEHAVIORAL HEALTH DISCHARGE SUMMARY REASON FOR ADMISSION: Patient is a 31-year-old female with a history of mood problems, po lysubstance dependence and multiple previous suicide attempts. She was admitted to the ICU after feliberto ferguson taken an overdose of Ambien as well as multiple kaam-sdj-vdyuvkw medicines including NyQuil. S he states that she had come home from [place] to live with her mother and had been clean and sober fo r 2 weeks. Prior to that, she had been drinking heavily and using crack cocaine on a daily basis fo r several months. She states that "everything just built up" and that she was feeling frustrated an d for no specific reason took the impulsive overdose. She then told her mother and she was taken to the hospital for evaluation. A full description of the events preceding admission can be found in her admission history dated 03/28/2017. ADMITTING DIAGNOSES: 1. Major depressive disorder, recurrent, moderate to severe without psychosis. 2. Recent suicide attempt via overdose. 3. Alcohol use disorder, severe. 4. Cocaine use disorder, moderate to severe. 5. Social isolation, lack of supports and recurrent self harm. ADMISSION PHYSICAL EXAMINATION: Performed by Dr. Donnell Gilliam and revealed dystonia in her neck, which is chronic and no other specific findings. ADMISSION LABORATORY: No additional laboratories were drawn though with her elevated LFTs were note d to be resolving in the ICU. HOSPITAL COURSE: Patient was admitted to the Behavioral Health Services Inpatient Unit on a transfe r of an M1 hold. She was pleasant, cooperative and interactive. She was bright and appeared to be significantly improved over her reported state on admission. She stated that she had essentially sc ared herself with the overdose and that she was pledging that she would never engage in these behavi ors again and that she definitely realized she did not want to . I discussed her medications wit h her and she stated that she believes that the Celexa had worked well in the past, but that it was not working while she was using cocaine and alcohol. She had been clean and sober for 2 weeks and w mainor felt like continuing the Celexa and allowing it to have a chance to work in the absence of substan danielle was the best next step. She was also continued on her clonazepam at 2 mg twice daily which she takes for anxiety and her dystonia. She was given cyclobenzaprine also for this. She expressed a h igh level of anxiety during her stay and did take some supplemental 0.5 mg lorazepam, though I was d iscouraging her from doing this on a regular basis, due to her history of substance use. I discusse d with her the need for a near term plan to be off benzodiazepines. She voiced a willingness to do this, though not abruptly. The patient's hospital course was uncomplicated. She improved significantly and was having no furth er thoughts of suicide. She was compliant with all medications and therapies and seemed to be forwa rd thinking and hopeful about the potential of being more active in therapy. CONDITION ON DISCHARGE: Stable. Her affect was euthymic, stable and appropriate. She was voicing no thoughts of suicide. DISCHARGE MEDICATIONS: Clonazepam 2 mg twice daily, Flexeril 10 mg three times daily, citalopram 20 mg daily. DISCHARGE DIAGNOSES: 1. Major depressive disorder, recurrent. 2. Moderate alcohol use disorder, severe. 3. Cocaine use disorder, severe. 4. Chronic illness, status post suicide attempt. 5. Chronic illness. 6. Chronic pain. DISPOSITION: Patient is to leave the hospital with her mother to return to her mother's home. FOLLOWUP: Followup was with [facility] as scheduled by the rn long term care thi s week. LEGAL COURSE: Patient was converted to a voluntary status at the expiration of her M1 hold. /[id number]/MODL
--- NOTE | 2017-04-01 17:20 | SOAPPROG ---
DAVI Progress Note Assessment/Plan: Assessment: Plan: 03/29/17 20:27 As above. Will CCM, work on d/c plan to include more family interaction with mother (who is a home health nurse that works six days a week.) 03/31/17 14:30 Doing well. CCM. Likely d/c tomorrow if all is well. 04/01/17 17:20 Continued improvement. Will CCM, likely d/c tomorrow if all is well. Subjective: Pt seen, discussed with staff. Intended to d/c today, but pt's mother was not in agreement. SHe has lingering concerns and wants to pick her up tomorrow when she will be able to spend the day with her. Pt is agreeable to this. She reports continued gradual improvement in mood. Objective: Vital Signs Temp Pulse Resp BP Pulse Ox 36.8 C 60 14 122/77 H 97 04/01/17 06:00 04/01/17 06:00 04/01/17 06:00 04/01/17 06:00 04/01/17 06:00 MSE: Calm, coop. Dystonia unchanged. Affect is bright, stable. Mood is "good." TP linear. TC reveals no psychosis. No SI. - Time Spent With Patient Time Spent With Patient: 25" - Pending Discharge Pending Discharge Within 24 Hours: Yes Pending Discharge Date: 04/02/17 Pending Discharge Time: 11:00 ICD10 Worksheet Patient Problems: Problems Problem Status Onset Abnormal liver function Acute Acetaminophen overdose Acute Deliberate medication overdose Acute Suicidal ideation Acute
[2017-04-01] MEDS: MAG HYDROX/AL HYDROX/SIMETH 30 ML UDCUP PO PRN (19:30)
[2017-04-02] MEDS: LORazepam 0.5 MG TAB PO PRN (00:21)
[2017-04-02 06:12] VITALS: BP 127/75; PULSE 85; TEMP 97.8; O2SAT 96
[2017-04-02] MEDS: CITALOPRAM 20 MG TAB PO SCH (07:58)
[2017-04-02] MEDS: clonazePAM 1 MG TAB PO SCH (07:59)
[2017-04-02] MEDS: CYCLOBENZAPRINE 10 MG TAB PO PRN (08:02)
[2017-04-02] MEDS ORDERED: clonazePAM 1 MG TAB PO ONE (09:00)
== END 2017-04-02 10:00 | disposition home or self-care (01) | DRG 885 ==
LOC: BBEH 13:28
PROVIDERS: ADMIT Psychiatry & Neurology Psychiatry; ATTEND Psychiatry & Neurology Psychiatry
DX: F33.2 Major depressive disorder, recurrent severe without psychotic features (principal); T42.6X2D Poisoning by other antiepileptic and sedative-hypnotic drugs, intentional self-harm, subsequent encounter; G24.8 Other dystonia; F10.188 Alcohol abuse with other alcohol-induced disorder; F13.99 Sedative, hypnotic or anxiolytic use, unspecified with unspecified sedative, hypnotic or anxiolytic-induced disorder; K70.10 Alcoholic hepatitis without ascites; F41.9 Anxiety disorder, unspecified; G89.29 Other chronic pain; Z91.5 Personal history of self-harm; Z87.891 Personal history of nicotine dependence; Z60.4 Social exclusion and rejection

== ENCOUNTER 2018-09-03 09:16 | Emergency (ER) | payer MEDICAID ==
--- NOTE | 2018-09-03 10:08 | EDPHY ---
H & P Stated Complaint: pain reaction s/p botox injection - Personal History Current Tetanus/Diphtheria Vaccine: Yes Current Tetanus Diphtheria and Acellular Pertussis (TDAP): Yes - Medical/Surgical History Hx Asthma: No Hx Chronic Respiratory Disease: No Hx Diabetes: No Hx Cardiac Disease: No Hx Renal Disease: No Hx Cirrhosis: No Hx Alcoholism: Yes Hx HIV/AIDS: No Hx Splenectomy or Spleen Trauma: No Other PMH: depression, dystonia, addenoidectomy, anxiety, etoh abuse, - Social History Smoking Status: Current some day smoker Time Seen by Provider: 09/03/18 09:26 HPI/ROS: CHIEF COMPLAINT: Neck pain post Botox injection HISTORY OF PRESENT ILLNESS: 33-year-old female history of spasmodic dystonia and dysphonia, history of chronic Botox injection, last had Botox injection into were cervical and upper thoracic region [address] Natanael Galindo, complaining 2 days later of headache, sore throat, worse neck pain, dyspnea No dizziness. No gait instability. No slurred speech. No fever no chills. No urinary abnormality. No upper extremity paresthesia or weakness. REVIEW OF SYSTEMS: 10 systems reviewed and negative with the exception of the elements mentioned in the history of present illness PAST MEDICAL & SURGICAL HISTORY: Spasmodic dystonia and spasmodic dysphonia SOCIAL HISTORY: Nonsmoker PHYSICAL EXAM (Prior to examination, patient consented to physical exam, hands were washed and my usual and customary physical exam procedures followed) 1) GENERAL: Well-developed, well-nourished, alert and oriented. Appears to be in no acute distress. 2) HEAD: Normocephalic, atraumatic 3) HEENT: Pupils equal, round, reactive to light bilaterally. Sclera anicteric. Negative Lillie's. Nasopharynx, oropharynx, clear, no lesions. No erythema. No tonsillar enlargement or exudate. Moist mucous membranes. Ears bilaterally with normal tympanic membranes. 4) NECK: Full range of motion, no meningeal signs. 5) LUNGS: Clear auscultation bilaterally, no wheezes, no rhonchi, no retractions. 6) HEART: Regular rate and rhythm, no murmur, no heave, no gallop. 7) ABDOMEN: No guarding, no rebound, no focal tenderness, negative McBurney's, negative Pascual's, negative Rovsing's, negative peritoneal sign, 8) MUSCULOSKELETAL: Moving all extremities, no focal areas of tenderness, no obvious trauma. No peripheral edema or discoloration. 9) BACK: No CVA tenderness, no midline vertebral tenderness, no fluctuance, no step-off, no obvious trauma, no visual or palpable abnormality. 10) SKIN: No rash, no petechiae. 11) Psychiatric: Patient is oriented X 3, there is no agitation. 12) NEURO: Awake, alert, and oriented to person, place and time. Answers questions appropriately. There were no obvious focal neurologic abnormalities. No cerebellar dysfunction. Cranial nerves 2 through to 12 intact. Normal steady gait. Upper and lower extremities bilaterally with strength 5 / 5, reflexes 2+. DIFFERENTIAL DIAGNOSIS: In no particular order including but not limited to pneumothorax, vertebral artery dissection, acute exacerbation chronic pain (Patricia Maynard) Constitutional: Initial Vital Signs Temperature (C) 36.7 C 09/03/18 09:21 Heart Rate 79 09/03/18 09:21 Respiratory Rate 16 09/03/18 09:21 Blood Pressure 110/86 H 09/03/18 09:21 O2 Sat (%) 99 09/03/18 09:21 O2 Delivery Mode Room Air Allergies/Adverse Reactions: No Known Allergies Allergy (Unverified 09/03/18 09:21) Home Medications: Medication Instructions Recorded clonazePAM [klonoPIN (*)] 2 mg PO BID #20 tab 04/01/17 Zolpidem Tartrate 09/03/18 Medical Decision Making - Diagnostics Imaging Results: Imaging Impressions Chest X-Ray 09/03/18 10:06 Impression: Clear lungs. No acute process. Images reviewed myself (Patricia Maynard) ED Course/Re-evaluation: 11:56 a.m.: Consultation with neurologist on-call for Dr. Natanael Galindo, Dr. Jacob Conti since the best to his familiar with this patient. He recommended no further intervention absence of red flag signs or symptoms. The patient was also examined and interviewed by Dr. Dior Mejias in the ER. I think that vertebral vessel dissection is less than likely in this patient. Doubt meningitis. No evidence of pneumothorax on chest x-ray. Patient and I discussed possible viral pathology. Influenza testing is negative. At this time I think the patient can be discharged home. No further intervention or diagnostic studies from the ER. Patient and her father feel comfortable being discharged. (Patricia Maynard) This pt was seen and examined by me. She is non-toxic appearing, afebrile and neck/back exam reveals mild paraspinous tenderness only. No worrisome signs/ sx. I agree with the above assessment and plan. (Dior Mejias) - Data Points Laboratory Results: Laboratory Results 09/03/18 10:15 09/03/18 10:15 09/03/18 09/03/18 09/03/18 Unknown 10:30 10:30 WBC RBC Hgb Hct MCV MCH MCHC RDW Plt Count MPV Neut % (Auto) Lymph % (Auto) [place] % (Auto) Eos % (Auto) Baso % (Auto) Nucleat RBC Rel Count Absolute Neuts (auto) Absolute Lymphs (auto) Absolute Monos (auto) Absolute Eos (auto) Absolute Basos (auto) Absolute Nucleated RBC Immature Gran % Immature Gran # Sodium Potassium Chloride Carbon Dioxide Anion Gap BUN Creatinine Estimated GFR Glucose Calcium Beta HCG, Qual Urine Color Urine Appearance Urine pH Ur Specific [place] Urine Protein Urine Ketones Urine Blood Urine Nitrate Urine Bilirubin Urine Urobilinogen Ur Leukocyte Esterase Urine RBC Urine WBC Ur Epithelial Cells Urine Bacteria Urine Mucus Urine Glucose Urine Test Nasal Influenza A PCR NEGATIVE FOR FLU A (NEGATIVE) Nasal Influenza B PCR NEGATIVE FOR FLU B (NEGATIVE) Group A Strep Screen NEGATIVE (NEGATIVE) Group A Strep DNA NEGATIVE (NEGATIVE) 09/03/18 09/03/18 09/03/18 10:15 10:15 10:15 WBC 8.81 10^3/uL 10^3/uL (3.80-9.50) RBC 4.16 10^6/uL L 10^6/uL (4.18-5.33) Hgb 14.8 g/dL g/dL (12.6-16.3) Hct 42.9 % % (38.0-47.0) MCV 103.1 fL H fL (81.5-99.8) MCH 35.6 pg H pg (27.9-34.1) MCHC 34.5 g/dL g/dL (32.4-36.7) RDW 11.8 % % (11.5-15.2) Plt Count 313 10^3/uL 10^3/uL (150-400) MPV 8.6 fL L fL (8.7-11.7) Neut % (Auto) 78.0 % H % (39.3-74.2) Lymph % (Auto) 14.0 % L % (15.0-45.0) [place] % (Auto) 6.7 % % (4.5-13.0) Eos % (Auto) 0.8 % % (0.6-7.6) Baso % (Auto) 0.2 % L % (0.3-1.7) Nucleat RBC Rel Count 0.0 % % (0.0-0.2) Absolute Neuts (auto) 6.87 10^3/uL H 10^3/uL (1.70-6.50) Absolute Lymphs (auto) 1.23 10^3/uL 10^3/uL (1.00-3.00) Absolute Monos (auto) 0.59 10^3/uL 10^3/uL (0.30-0.80) Absolute Eos (auto) 0.07 10^3/uL 10^3/uL (0.03-0.40) Absolute Basos (auto) 0.02 10^3/uL 10^3/uL (0.02-0.10) Absolute Nucleated RBC 0.00 10^3/uL 10^3/uL (0-0.01) Immature Gran % 0.3 % % (0.0-1.1) Immature Gran # 0.03 10^3/uL 10^3/uL (0.00-0.10) Sodium 136 mEq/L mEq/L (135-145) Potassium 4.5 mEq/L mEq/L (3.5-5.2) Chloride 110 mEq/L mEq/L (97-110) Carbon Dioxide 21 mEq/l L mEq/l (22-31) Anion Gap 5 mEq/L L mEq/L (6-14) BUN 11 mg/dL mg/dL (7-23) Creatinine 0.6 mg/dL mg/dL (0.6-1.0) Estimated GFR > 60 Glucose 88 mg/dL mg/dL (70-100) Calcium 9.3 mg/dL mg/dL (8.5-10.4) Beta HCG, Qual NEGATIVE Urine Color Urine Appearance Urine pH Ur Specific [place] Urine Protein Urine Ketones Urine Blood Urine Nitrate Urine Bilirubin Urine Urobilinogen Ur Leukocyte Esterase Urine RBC Urine WBC Ur Epithelial Cells Urine Bacteria Urine Mucus Urine Glucose Urine Test Nasal Influenza A PCR Nasal Influenza B PCR Group A Strep Screen Group A Strep DNA 09/03/18 09/03/18 09:36 09:36 WBC RBC Hgb Hct MCV MCH MCHC RDW Plt Count MPV Neut % (Auto) Lymph % (Auto) [place] % (Auto) Eos % (Auto) Baso % (Auto) Nucleat RBC Rel Count Absolute Neuts (auto) Absolute Lymphs (auto) Absolute Monos (auto) Absolute Eos (auto) Absolute Basos (auto) Absolute Nucleated RBC Immature Gran % Immature Gran # Sodium Potassium Chloride Carbon Dioxide Anion Gap BUN Creatinine Estimated GFR Glucose Calcium Beta HCG, Qual Urine Color PALE YELLOW Urine Appearance CLEAR Urine pH 6.0 (5.0-7.5) Ur Specific [place] 1.002 (1.002-1.030) Urine Protein NEGATIVE (NEGATIVE) Urine Ketones NEGATIVE (NEGATIVE) Urine Blood 2+ H (NEGATIVE) Urine Nitrate NEGATIVE (NEGATIVE) Urine Bilirubin NEGATIVE (NEGATIVE) Urine Urobilinogen NEGATIVE EU EU (0.2-1.0) Ur Leukocyte Esterase NEGATIVE (NEGATIVE) Urine RBC 1-3 /hpf /hpf (0-3) Urine WBC 1-3 /hpf /hpf (0-3) Ur Epithelial Cells TRACE /lpf /lpf (NONE-1+) Urine Bacteria 3+ /hpf H /hpf (NONE SEEN) Urine Mucus TRACE /lpf /lpf (NONE-1+) Urine Glucose NEGATIVE (NEGATIVE) Urine Test NEGATIVE Nasal Influenza A PCR Nasal Influenza B PCR Group A Strep Screen Group A Strep DNA Medications Given: Discontinued Medications Dexamethasone (Decadron Injection) 10 mg IVP EDNOW ONE Stop: 09/03/18 11:30 Last Admin: 09/03/18 12:07 Dose: 10 mg Ibuprofen (Motrin) 600 mg PO EDNOW ONE Stop: 09/03/18 11:40 Last Admin: 09/03/18 12:06 Dose: 600 mg Lorazepam (Ativan Injection) 1 mg IVP EDNOW ONE Stop: 09/03/18 10:10 Last Admin: 09/03/18 10:23 Dose: 1 mg Departure - Departure Disposition: Home, Routine, Self-Care Clinical Impression: Neck pain Condition: Good Instructions: Neck Pain (ED) Additional Instructions: Return to the ER immediately if you experience new or worsening neck pain, dizziness, visual disturbance, double vision, lightheadedness, facial droop, or any other symptoms that concern you. Avoid deep tissue massage and chiropractic manipulation, until symptom-free, and cleared by your regular health care provider. Referrals: Natanael Galindo MD [Medical Doctor] - 1 day without fail
[2018-09-03] MEDS ORDERED: LORazepam 2 MG/ML INJ IVP ONE (10:09)
[2018-09-03 10:23] LABS: PLATELET COUNT 313 10^3/uL (150-400)
[2018-09-03] MEDS ORDERED: DEXAMETHASONE 10 MG/ML VIAL IVP ONE (11:29)
[2018-09-03] MEDS ORDERED: IBUPROFEN 600 MG TAB PO ONE (11:39)
[2018-09-03 12:11] VITALS: BP 120/88
== END 2018-09-03 12:30 | disposition home or self-care (01) ==
DX: M54.2 Cervicalgia (principal); R49.0 Dysphonia; G24.8 Other dystonia; F17.210 Nicotine dependence, cigarettes, uncomplicated
CPT/HCPCS: 96374; J1100; J2060

== ENCOUNTER 2018-12-01 14:41 | Inpatient (IN) | payer MEDICAID, OTHER ==
--- NOTE | 2018-12-01 15:12 | EDPHY ---
H & P Time Seen by Provider: 12/01/18 14:52 HPI/ROS: Chief complaint. Cutting, psych issues HPI. 33 female presents emergency department wanting mental health evaluation. She has been cutting her left forearm. Denies suicide ideation. Is not sick. Has not taken any medication today. Requesting Tylenol for headache her usual Klonopin which she has a. Chest pain or shortness of breath. Abdominal pain. Patient is in a cervical collar and has some dysarthria that is apparently secondary to both tox treatments for her depression anxiety. No recent trauma or injury to her neck however. ROS 10 systems were reviewed and negative with the exception of the elements mentioned in the history of present illness Past Medical/Surgical History: Past medical history significant depression, anxiety, alcoholism Social History: Single, daily smoker, no alcohol Smoking Status: Current some day smoker Physical Exam: General Appearance: Mild distress vital signs are stable Eyes: Pupils equal and round no pallor or injection. ENT, slight dysarthria. Respiratory: There are no retractions, lungs are clear to auscultation. Cardiovascular: Regular rate and rhythm. Gastrointestinal: Abdomen is soft and nontender, no masses, bowel sounds normal. Neurological: Awake and alert, sensory and motor exams grossly normal. Skin: Multiple superficial self-inflicted lacerations left forearm. No infection and none requiring sutures Musculoskeletal: Cervical collar secondary to Botox treatment Extremities symmetrical, full range of motion. Psychiatric: Patient is oriented X 3, there is no agitation. Constitutional: Initial Vital Signs Temperature (C) 36.9 C 12/01/18 15:08 Heart Rate 90 12/01/18 15:08 Respiratory Rate 16 12/01/18 15:08 Blood Pressure 125/90 H 12/01/18 15:08 O2 Sat (%) 95 12/01/18 15:08 O2 Delivery Mode Room Air Allergies/Adverse Reactions: No Known Allergies Allergy (Unverified 09/03/18 09:21) Home Medications: Medication Instructions Recorded clonazePAM [klonoPIN (*)] 2 mg PO BID #20 tab 04/01/17 Zolpidem Tartrate 09/03/18 Medical Decision Making Procedures: Tylenol and Klonopin orally ED Course/Re-evaluation: Patient's labs are reviewed. Urine tox screen positive for cocaine. Patient otherwise stable and cleared for mental health evaluation Patient has been evaluated and accepted for inpatient management at [address] [place] [address]. Differential Diagnosis: Depression anxiety and self harm. - Data Points Laboratory Results: Laboratory Results 12/01/18 14:50 12/01/18 14:50 12/01/18 12/01/18 12/01/18 14:50 14:50 14:50 WBC RBC Hgb Hct MCV MCH MCHC RDW Plt Count MPV Neut % (Auto) Lymph % (Auto) [place] % (Auto) Eos % (Auto) Baso % (Auto) Nucleat RBC Rel Count Absolute Neuts (auto) Absolute Lymphs (auto) Absolute Monos (auto) Absolute Eos (auto) Absolute Basos (auto) Absolute Nucleated RBC Immature Gran % Immature Gran # Sodium 137 mEq/L mEq/L (135-145) Potassium 4.2 mEq/L mEq/L (3.5-5.2) Chloride 103 mEq/L mEq/L (97-110) Carbon Dioxide 23 mEq/l mEq/l (22-31) Anion Gap 11 mEq/L mEq/L (6-14) BUN 19 mg/dL mg/dL (7-23) Creatinine 0.7 mg/dL mg/dL (0.6-1.0) Estimated GFR > 60 Glucose 84 mg/dL mg/dL (70-100) Calcium 9.7 mg/dL mg/dL (8.5-10.4) Beta HCG, Qual NEGATIVE Urine Opiates Screen NEGATIVE (NEGATIVE) Acetaminophen < 10 mcg/mL L mcg/mL (10-30) Urine Barbiturates NEGATIVE (NEGATIVE) Ur Phencyclidine Scrn NEGATIVE (NEGATIVE) Ur Amphetamine Screen NEGATIVE (NEGATIVE) U Benzodiazepines Scrn NEGATIVE (NEGATIVE) Urine Cocaine Screen NON-NEGATIVE H (NEGATIVE) U Marijuana (THC) Screen NEGATIVE (NEGATIVE) Ethyl Alcohol < 10 mg/dL mg/dL (0-10) 12/01/18 14:50 WBC 8.05 10^3/uL 10^3/uL (3.80-9.50) RBC 4.10 10^6/uL L 10^6/uL (4.18-5.33) Hgb 14.3 g/dL g/dL (12.6-16.3) Hct 42.0 % % (38.0-47.0) MCV 102.4 fL H fL (81.5-99.8) MCH 34.9 pg H pg (27.9-34.1) MCHC 34.0 g/dL g/dL (32.4-36.7) RDW 12.0 % % (11.5-15.2) Plt Count 323 10^3/uL 10^3/uL (150-400) MPV 8.4 fL L fL (8.7-11.7) Neut % (Auto) 73.9 % % (39.3-74.2) Lymph % (Auto) 18.0 % % (15.0-45.0) [place] % (Auto) 6.8 % % (4.5-13.0) Eos % (Auto) 0.4 % L % (0.6-7.6) Baso % (Auto) 0.5 % % (0.3-1.7) Nucleat RBC Rel Count 0.0 % % (0.0-0.2) Absolute Neuts (auto) 5.95 10^3/uL 10^3/uL (1.70-6.50) Absolute Lymphs (auto) 1.45 10^3/uL 10^3/uL (1.00-3.00) Absolute Monos (auto) 0.55 10^3/uL 10^3/uL (0.30-0.80) Absolute Eos (auto) 0.03 10^3/uL 10^3/uL (0.03-0.40) Absolute Basos (auto) 0.04 10^3/uL 10^3/uL (0.02-0.10) Absolute Nucleated RBC 0.00 10^3/uL 10^3/uL (0-0.01) Immature Gran % 0.4 % % (0.0-1.1) Immature Gran # 0.03 10^3/uL 10^3/uL (0.00-0.10) Sodium Potassium Chloride Carbon Dioxide Anion Gap BUN Creatinine Estimated GFR Glucose Calcium Beta HCG, Qual Urine Opiates Screen Acetaminophen Urine Barbiturates Ur Phencyclidine Scrn Ur Amphetamine Screen U Benzodiazepines Scrn Urine Cocaine Screen U Marijuana (THC) Screen Ethyl Alcohol Medications Given: Gabapentin (Neurontin) 300 mg PO TID LUCA Stop: 05/30/19 23:44 Last Admin: 12/01/18 23:50 Dose: 300 mg Nicotine Polacrilex (Nicorette) 2 mg B PRN PRN PRN Reason: Nicotine Withdrawal Stop: 05/30/19 16:39 Last Admin: 12/01/18 16:44 Dose: 2 mg Discontinued Medications Acetaminophen (Tylenol) 1,000 mg PO EDNOW ONE Stop: 12/01/18 15:21 Last Admin: 12/01/18 15:27 Dose: 1,000 mg Clonazepam (Klonopin) 2 mg PO EDNOW ONE Stop: 12/01/18 15:21 Last Admin: 12/01/18 15:28 Dose: 2 mg Ibuprofen (Motrin) 600 mg PO EDNOW ONE Stop: 12/01/18 18:32 Last Admin: 12/01/18 18:33 Dose: 600 mg Zolpidem Tartrate (Ambien) 10 mg PO ONCE ONE Stop: 12/01/18 21:40 Last Admin: 12/01/18 21:45 Dose: 10 mg Departure - Departure Disposition: [facility] IP Clinical Impression: Severe major depression Condition: Fair
[2018-12-01 15:14] LABS: PLATELET COUNT 323 10^3/uL (150-400)
[2018-12-01] MEDS ORDERED: ACETAMINOPHEN 500 MG TAB PO ONE (15:20)
[2018-12-01] MEDS ORDERED: clonazePAM 1 MG TAB PO ONE (15:20)
[2018-12-01] MEDS ORDERED: NICOTINE POLACRILEX 2 MG GUM B PRN ×2 (16:40→23:36)
[2018-12-01] MEDS ORDERED: IBUPROFEN 600 MG TAB PO ONE ×2 (18:31)
[2018-12-01] MEDS ORDERED: ZOLPIDEM TARTRATE 5 MG TAB PO ONE (21:39)
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
--- NOTE | 2018-12-01 22:12 | ASMTTCLDSP ---
TLC Discharge Disposition Disposition: Answers: Admit Discharge Concerns/Recommendations: Notes: In consultation with [facility] ED physician,Dr Snow and on-call psychiatrist, Dr Velázquez, both concurred that Pt does appear to meet 27-65 criteria requiring psychiatric hospitalization as Pt does appear to be an imminent risk of harm to self due to a mental illness condition. Pt was read the Patient Rights and Responsibilities Statement on 12/01/2018 at 21:00, original placed in chart and copy given to pt. Was patient given the Answers: Yes Inpatient Behavioral Health Prohibited Belongings List while in the ED? For inpatient Dr Velázquez admission, the following psychiatrist agreed to accept patient for admission to Behavioral Health ([facility]): Date Signed: 12/01/2018 10:11 PM Electronically Signed By:Marimar Miles
--- NOTE | 2018-12-01 22:53 | ASMTLCPROG ---
Notes Note: Notes: Diagnosis was incorrectly recorded on TLC evaluation. It should be:Major Depressive Disorder, recurrent, severe 296.33 (F33.2) Alcohol Use Disorder, severe 303.90 (F10.20) Date Signed: 12/01/2018 10:52 PM Electronically Signed By:Marimar Miles
[2018-12-01] MEDS ORDERED: MAGNESIUM HYDROXIDE 30 ML UDCUP PO PRN (23:36)
[2018-12-01] MEDS ORDERED: MAG HYDROX/AL HYDROX/SIMETH 30 ML UDCUP PO PRN (23:36)
[2018-12-01] MEDS ORDERED: ACETAMINOPHEN 325 MG TAB PO PRN (23:36)
[2018-12-01] MEDS: GABAPENTIN 300 MG CAP PO SCH (23:50)
[2018-12-02] MEDS: GABAPENTIN 300 MG CAP PO SCH ×3 (08:12→20:14)
[2018-12-02] MEDS: clonazePAM 1 MG TAB PO SCH ×2 (08:12→20:14)
--- NOTE | 2018-12-02 08:16 | ASMTBHMTP ---
Master Treatment Plan Master Treatment Plan Answers: Depressed Mood with for: Suicidal Ideation Date: 12/02/2018 Diagnosis on Admission: Major Depressive Disorder, recurrent, severe 296.33 Expected length of stay: 3-5 Days Reason for admission: Notes: Pt is a 31 y/o female, with dystonia associated with a brain injury, who self-presented to the ED due to increased depression and more serious "cutting". Pt is seeking admittance to [facility]'s behavioral health unit. Pt has an extensive hx of major depression and poly substance abuse. She has been hospitalized twice at [facility] and much of the following information has been gleaned from past reports. Pt has stated that since her last discharge from [facility] in March 2017 she has been both depressed and using various substances, but that both of these have significantly accelerated over the past 6 months. It is important to note that 6 months ago pt discontinued her Prozac, because "I felt better". Pt endorses the following symptoms of depression: suicidal ideation several days a week, self harming through cutting; 2-3 days ago she made a cut on her wrist which was deeper than those made in the past, a depressed mood, a sense of hopelessness about the future, self-criticalness and increased worthlessness, a belief that she's being punished, a marked increase in fatigue and lack of motivation, a loss of interest in others or in past pleasures, a desire to cry, but an inability to do so, difficulty concentrating and making decisions, a small increase in appetite and a decrease in hygeine and grooming. Pt's use of alcohol has increased; she is drinking daily, a bottle of wine and several shots of vodka. Pt thinks that if she did kill herself she would slit her arms; she denies current intent. "I think there's something in our DNA that pushes us to survive". She does speak of future plans; she wants to reengage in rehab, maybe go to school, seek disability due to her dystonia. She speaks to her bf, her mother and several friends supplying her with emotional support; her mother encouraged her to come here tonight. Patient's stated presenting problems: Notes: Pt. reports she cut herself. Pt. reports struggling with cutting and suicidal thoughts "on and off" for about 3 years. Patient's goals for treatment: Notes: Pt. stated to get into a dual-diagnosis rehabilitation facility. Patient's strengths: Notes: Pt. reports "even in times when shit sucks, I'm still positive" Identify supports outside of hospital: Notes: Pt. stated her mom, boyfriend, family and some friends. Discharge criteria: Notes: Suicidal ideation will resolve and patient will have a plan to safely manage recurrent suicidal ideation. Initial disposition plan/considerations: Notes: Pt. stated she wants to get into a dual-diagnosis rehab. Master Treatment Plan Required Signatures Psychiatrist signature: Answers: Psychiatrist: RN on-shift signature: Answers: RN: Patient signature: Answers: Patient: Date Signed: 12/02/2018 08:15 AM Electronically Signed By:Fabienne Ware
[2018-12-02] MEDS ORDERED: FLUoxetine 10 MG CAP PO ONE (09:05)
[2018-12-02] MEDS: IBUPROFEN 800 MG TAB PO PRN (10:18)
--- NOTE | 2018-12-02 11:29 | ASMTCMCOM ---
CM Note CM Note Notes: CC met with pt. to complete MTP. Pt. reports having been to rehab in [place], adding she is [place]. Pt. reports have a "very supportive" boyfriend. Pt. denied any current legal issues. Pt. reports drinking alcohol "everyday". Pt. reports using crack cocaine. Pt. stated she would like to get into a dual-diagnosis rehabilitation facility. Pt. reports working with [facility] in the past and wanting to work with them again. Pt. attended treatment team planning today. Pt. signed SARA for [facility] CC to reach out to [facility] for follow up appointments for pt. and to discuss residential rehabilitation for the pt. Date Signed: 12/02/2018 11:29 AM Electronically Signed By:Fabienne Ware
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
--- NOTE | 2018-12-02 13:27 | BCON ---
[f rep st] BEHAVIORAL HEALTH CONSULTATION INTERNAL MEDICINE CONSULTATION REFERRING PHYSICIAN: Dr. Batres REASON FOR REFERRAL: Medical clearance for inpatient behavioral health stay. HISTORY OF PRESENT ILLNESS: This patient came to the emergency department with increased anxiety and depression and noted that she had been cutting on herself. She was evaluated by the mental health team and admitted for further psychiatric care. She currently is without any acute complaints. PAST MEDICAL HISTORY: 1. Anxiety and depression. 2. Polysubstance abuse. 3. Dystonia. 4. Brain injury which may have precipitated the dystonia. PAST SURGICAL HISTORY: She denies any surgeries. MEDICATIONS: Prior to admission: 1. Clonazepam 2 mg p.o. b.i.d. 2. Zolpidem p.r.n. ALLERGIES: There are no known drug allergies. SOCIAL HISTORY: She lives with a boyfriend. 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 She is a tobacco smoker, alcohol user and had a positive drug test for cocaine. In the past, she has used methamphetamine. She is a cigarette smoker. FAMILY HISTORY: Her father of a stroke, possibly related to alcoholism. REVIEW OF SYSTEMS: She reports she has had some weight gain and is curious about what her weight is currently. She denies fevers or chills. Regarding dystonia, she feels her head and neck position is fairly good. She reports that she is due for a repeat Botox injection to the vocal cords. She has had speech therapy in the past but not recently. She has a tremor but denies other symptoms of alcohol withdrawal at present with no sweats and denies hallucinations. She denies nausea, vomiting, constipation, or diarrhea. She is not in pain. She has no palpitations. She has no dysuria or urinary frequency. Otherwise, a 10-point review of systems is negative. PHYSICAL EXAM: VITAL SIGNS: Blood pressure is 113/68, heart rate is 80, respiratory rate is 16, oxygen saturation is 97% on room air, temperature is 36.8 degrees centigrade. Her weight is recorded at 54.4 kg for a body mass index of 22.7. GENERAL: This is a well-nourished, well-developed woman dressed in street clothes, cooperative, and in no acute distress. HEENT: Extraocular movements are intact. Pupils are equal, round, reactive to light. Mucous membranes are moist. Dentition is in good condition. She has an uncrowded airway, Mallampati class 1. NECK: Supple. She has slight rightward torticollis. HEART: There is regular rate and rhythm with no murmurs, rubs, or gallops. LUNGS: Clear to auscultation bilaterally. ABDOMEN: Benign. EXTREMITIES: There is no cyanosis, clubbing, or edema. NEUROLOGIC: She is alert and oriented x3. Cranial nerves 2 through 12 are grossly intact. Her neck shows slight dystonia with rightward torticollis. She has a dystonic voice which is intermittently breathy and has dysprosody. There is no focal weakness. Sensation is intact to light touch and gait is within normal limits. SKIN: She has multiple superficial lacerations on the left wrist and forearm. There is no erythema or drainage. LABORATORY STUDIES: From yesterday. CBC was overall normal. She had an elevated MCV at 102.4, likely consistent with alcohol use. Serum chemistry revealed normal renal function, electrolytes, liver functions, and lipid panel. Hemoglobin A1c was normal at 5.2. Beta hCG was negative for . Toxicology screen in the serum was negative for acetaminophen or ethyl alcohol, and in the urine, was non-negative for cocaine but otherwise negative for substances of abuse. ASSESSMENT AND RECOMMENDATIONS: 1. Mental health issues. Pending further evaluation and management per Psychiatry and the mental health team. 2. Superficial lacerations on the left wrist. Expect that these will heal normally and no intervention is necessary. 3. Dystonia. The physical posturing of torticollis appears to be under good control with her current Botox regimen. She reports she is due for Botox injections of the vocal cords. She might be a good candidate for speech therapy on an outpatient basis after she is released from inpatient behavioral health. 4. Polysubstance abuse. She might be a candidate for specific substance abuse counseling. Advise observing for signs or symptoms of alcohol withdrawal. 5. Tobacco dependence syndrome. She was encouraged to quit smoking. 6. Weight gain. Might be due to extra calories taken in by alcohol. There is no specific further evaluation or management indicated at present. I see no medical contraindications to this patient's continued stay on the inpatient behavioral health unit or to any psychiatric medications or procedures. Thank you very much for including me in the care of this patient. Please do not hesitate to contact me or the hospitalist service should there be need for further medical evaluation. /[id number]/MODL MTDD
[2018-12-02] MEDS: LORazepam 0.5 MG TAB PO PRN (17:48)
--- NOTE | 2018-12-02 18:22 | PDMN ---
Medical Necessity Medical necessity: IP criteria met per and [facility] [id number] (Major Depressive Disorder, Adult, IP care); goal stay 3 days for self harm ideation and cutting; requiring crisis stabilization and medication management. Hx major depressive disorder, alcohol abuse and amphetamine abuse.
[2018-12-02] MEDS: QUEtiapine FUMARATE 50 MG TAB PO SCH (20:14)
[2018-12-03] MEDS: IBUPROFEN 800 MG TAB PO PRN ×2 (06:35→12:33)
[2018-12-03] MEDS: LORazepam 0.5 MG TAB PO PRN ×2 (06:36→12:33)
--- NOTE | 2018-12-03 06:42 | SOAPPROG ---
SOAP Progress Note Assessment/Plan: Assessment: Major Depressive Disorder, Severe, with anxious distress. Alcohol Use Disorder , Severe. Stimulant Use Disorder, Severe. Improvement noted. (see subjective/ objective note). Patient could benefit from continued inpatient hospitalization for crisis stabilization, safety, and medication evaluation. Consider discharge tomorrow. Plan: 1. Psychotropic medications: After reviewing options, risks, and benefits patient agrees to continue current medications. No medication changes at this time as more time is needed to determine ongoing tolerability and efficacy. Plan is to continue to observe patient for response and side effects from medications, and ongoing monitoring and evaluation. 2. Review with patient informed consent and recommendations for psychotropic medication treatment listed below 3. Labs: no additional at this time 4. Therapy: continue milieu and group therapy 5. Further investigation including gathering information from patients relatives and review of past case records to inform treatment plan. 6. Safety/Wellness plan and follow-up outpatient appointments to be established prior to discharge. Next steps are for patient to meet with personal care aide to plan a safe discharge plan and establish outpatient services for ongoing treatment. 7. Confer with inpatient treatment team regarding treatment plan. 8. Psychosocial stressors addressed through pillowcase cleaner. 9. Legal status: voluntary 10. Consider discharge Friday if patient is in stable condition, safe, and has a safe discharge plan. PSYCHOTROPIC MEDICATION TREATMENT INFORMED CONSENT and RECOMMENDATIONS: Review nature of condition, diagnosis, and prognosis. Review nature and purpose of psychotropic medication treatment. Review type of psychotropic medications being ordered. Review risk and benefits of psychotropic medication treatment. Review probable length of time patient will need to take medications. Review risk and benefits of not undergoing psychotropic medication treatment. Review alternative treatments to psychotropic medications. Review psychotropic medications contraindications, drug-drug interactions, side effects, and importance of reporting any side effects to a psychiatric provider or nurse during inpatient hospitalization, and upon discharge to patients psychiatric outpatient provider, primary care provider, or other health medication care manager. Review importance of asking a nurse, psychiatric provider, or primary care provider any questions or problems concerning the psychotropic medications. Verify patient understands the information that has been provided, and understands, accepts, and agrees to psychotropic medications. Review patients safety plan and importance of patient to report to staff while hospitalized if patient is ever a danger to self/others, or unable to care for self, and upon discharge, the importance for patient to contact [facility] or [facility], or go to the nearest emergency room, if patient is ever a danger to self/others, or unable to care for self. Recommend that upon discharge patient establish medication management treatment with a psychiatric provider, establishes routine therapy appointments, and follow-up with primary care provider. Verify patient understands and agrees to these recommendations. 12/03/18 06:41 Subjective: Following up with patient for evaluation of mood and safety. Patient reports, "I feel much better. The Seroquel was great for sleep. Give that a thumbs-up. " Patient expresses no current psychiatric symptoms. Patient reports taking medications as prescribed. Patient does not report undesirable side effects from the medications, and agrees to continue current medications. Patient describes getting 8 hours of sleep. Patient agrees to follow-up for substance abuse treatment after discharge. Objective: Vital Signs Temp Pulse Resp BP Pulse Ox 36.8 C 80 16 113/68 97 12/01/18 23:40 12/01/18 23:40 12/01/18 23:40 12/01/18 23:40 12/01/18 23:00 NURSING REPORT: Consulted with nursing for update on patients progress in treatment. Nurses report patient is engaged in treatment, is attending groups, slept 8 hours, expresses the following psychiatric symptoms: moderate anxiety, exhibits the following psychiatric symptoms: moderate anxiety; is eating all meals, is agreeable to medications and taking as prescribed with no report of side effects, with no s/s of EPS/akathisia, and denies SI/HI, denies A/V hallucinations, and denies delusions. SUBSTANCE ABUSE BRIEF INTERVENTION: Brief intervention regarding the risks of cocaine and alcohol abuse is provided to patient with goal to reduce the risk of harm that could result from the continued use of cocaine and alcohol, with the general aim to investigate the problem, raise awareness of problem, develop a solution with the patient, recommend a specific change or activity, and motivate the patient toward change. Assess substance abuse behavior and give supportive advice about harm reduction, recommend a reduction in hazardous/at- risk consumption patterns, and facilitate referrals for additional specialized treatment with career representative. Intermediate goal is for the patient to quit and attend outpatient substance abuse treatment. Intervention focus on intermediate goals to allow for more immediate success in the treatment process to keep the patient motivated. Review following with patient: Alcohol/Binge Drinking risks: short-term: injuries, violence, alcohol poisoning, risky sexual behaviors. Long-term: high blood pressure, stroke, liver disease, digestive problems, cancer, learning and memory problems, depression and anxiety, social problems, and alcohol dependence. Cocaine use risks: Short-term: erratic and violent behavior, panic attacks, paranoia, psychosis; heart rhythm problems, heart attack; stroke, seizure, coma. Long-term: Loss of sense of smell, nosebleeds, nasal damage and trouble swallowing from snorting; infection and of bowel tissue from decreased blood flow; poor nutrition and weight loss ; lung damage from smoking. OUTPATIENT SUBSTANCE ABUSE TREATMENT: Patient referred to outpatient provider and treatment for continued treatment related to substance abuse. MSE: The patient is a well-nourished female looking stated chronological age. Attire is appropriate dress is hospital garb. Grooming status is appropriate. Ambulation is independent. Gait is normal and coordinated. Posture is normal. Eye contact is appropriate. Motor activity is appropriate with purposeful, organized, coordinated movements; with no involuntary movements. Attitude is cooperative. Patient appears attentive and relates well to this interviewer. Language production is spontaneous. R/R/V normal. Articulation is clear. Patient reports mood as okay with anxious affect. Patients thought process is linear and logical. Patient does not report suicidal/homicidal thoughts, ideas , or plans. Patient reports she currently feels safe, and reports no self- injurious ideation. Patient denies auditory, visual hallucinations. Patient denies delusions. Patient does not appear to be attending to internal stimuli. Patients attention and concentration are fair. Patient is oriented to person , place, time. Patients insight is poor. Patients judgment is poor. - Time Spent With Patient Time Spent With Patient: 15 minutes, met with patient individually. 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
[2018-12-03] MEDS: GABAPENTIN 300 MG CAP PO SCH ×3 (08:07→19:56)
[2018-12-03] MEDS: FLUoxetine 20 MG CAP PO SCH (08:07)
[2018-12-03] MEDS: clonazePAM 1 MG TAB PO SCH ×2 (08:07→19:56)
[2018-12-03] MEDS ORDERED: PNEUMOCOCCAL 0.5ML VACCINE VIAL (PNEUMOVAX 23) IM ONE (13:14)
--- NOTE | 2018-12-03 14:22 | ASMTBHDC ---
Notes Note: Notes: The patient reported interest in substance abuse treatment. The patient has transportation and financial barriers. She would like to discuss out of pocket costs further with her family. The patient is motivated and hopeful about recovery. She expressed interest in pursuing SSDI as well. Date Signed: 12/03/2018 02:22 PM Electronically Signed By:Stefanie Davidson
[2018-12-03] MEDS: QUEtiapine FUMARATE 50 MG TAB PO SCH (19:56)
[2018-12-04] MEDS: LORazepam 0.5 MG TAB PO PRN ×2 (01:43→09:24)
[2018-12-04 06:16] VITALS: BP 124/86
[2018-12-04] MEDS: FLUoxetine 20 MG CAP PO SCH (07:44)
[2018-12-04] MEDS: clonazePAM 1 MG TAB PO SCH (07:44)
[2018-12-04] MEDS: GABAPENTIN 300 MG CAP PO SCH (07:44)
[2018-12-04] MEDS: IBUPROFEN 800 MG TAB PO PRN (12:44)
--- NOTE | 2018-12-04 12:47 | ASMTBHDC ---
Notes Note: Notes: Pt. reports "doing pretty damn good". Pt. stated she is "sleeping really well and dreaming again". Pt. reports getting enough to eat, stating she is "trying to not over eat". Pt. reports no issues with her current medications, reporting "they're perfect". Pt. stated she is able to fill and take her medications as prescribed. Pt. reports being able to get to her follow up appointment. Pt. stated she has spoken with her boyfriend and they agreed on plan to support pt's goal of sobriety. CC and pt. discussed a relapse prevention plan, difficulties in recovery, and new skills for pt. to work on. Pt. denied SI, HI, AVH and paranoia. Pt. requested information about local residential rehabilitation centers. Pt. presents as alert, calm, excited to discharge, good eye contact, friendly and cooperative. Staff report pt. sleeping 11 hours and being medication compliant Pt.'s follow up appointments: Follow up with: [facility] [address] [place] [id number] [address]: scheduled for a 2 hour Comprehensive Assessment 12/09/18 at 11:30, check in at 11:15 a.m. at [facility] with Precious Pisano.When you send referral, please send Attn: Precious Pisano to [phone]. CC provided information on six local residential rehabilitation centers, along with substance abuse assistance through Medicaid, and the AA meetings available in [place] for the next week. Date Signed: 12/04/2018 12:46 PM Electronically Signed By:Fabienne Ware
--- NOTE | 2018-12-04 13:03 | BDS ---
[f rep st] BEHAVIORAL HEALTH DISCHARGE SUMMARY REASON FOR ADMISSION: From the ED note dated 12/01/2018, the patient presented to the emergency department after cutting her left forearm. Patient reported increased depression and recently having more serious "cutting." The patient was admitted voluntarily due to being a danger to herself. The patient was admitted for safety, crisis stabilization, and medication management. ADMITTING DIAGNOSES: 1. Major depressive disorder, severe. 2. Generalized anxiety disorder. 3. Stimulant use disorder. 4. Alcohol use disorder, severe. 5. 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 ADMISSION PHYSICAL EXAM: Patient was seen on 12/02/2018 for history and physical consultation for medical clearance for inpatient psychiatric hospitalization and treatment. Patient was medically cleared for inpatient psychiatric hospitalization and treatment. For further details, please refer to consultation document dated 12/02/2018. ADMISSION LABS: 1. CBC within normal limits except red blood cells were low at 4.10, MCV was elevated at 102.4, MCH was elevated at 34.9, MPV was low at 8.4, eosinophils were low at 0.4. 2. Chemistry within normal limits. 3. Hemoglobin A1c within normal limits at 5.2. 4. Liver function within normal limits. 5. Lipid panel within normal limits. 6. Beta hCG qualitative test negative. 7. Toxicology screen non-negative for cocaine, negative for all the other substances screened, and negative for ethyl alcohol. MAJOR PROCEDURES OR TESTS: None. HOSPITAL COURSE: The most prominent symptoms and behaviors while the patient was here were reports of severe anxiety and depression. The patient also presented with severe anxiety. Target symptoms during hospitalization were anxiety and depression. Treatment modalities utilized were milieu and group therapy. Klonopin 1 mg p.o. b.i.d. was continued to target anxiety symptoms, was tolerated with no report of side effects and with good response. Prozac 20 mg p.o. daily was started to target mood symptoms, was tolerated with no report of side effects. Gabapentin was started and titrated to 900 mg p.o. t.i.d. for neuropathic pain, was tolerated with no report of side effects and with good response. Seroquel 50 mg p.o. at bedtime was started to target depression symptoms and insomnia related to depression; medication was tolerated with no report of side effects and with good response. Patient has improved considerably with no signs of psychiatric symptoms and no psychiatric symptoms expressed. Patient reports she has improved since admission, states to be in stable condition, feels safe to discharge, and she contracts for safety. Patients response to treatment was good. There were no adverse or unexpected results of treatment. The patient was safe throughout stay, active in treatment , engaged in groups, and was appropriate with staff. Patient met with treatment team prior to discharge to assess readiness to discharge and review discharge plan. The treatment team consensus is the patient in stable condition , has a safe discharge plan, and is ready to discharge today. CONDITION AT DISCHARGE: Patient is in stable condition and is no longer a danger to self or others, and is not gravely disabled due to mental illness. Patient is no longer in need of inpatient level of care, and can be safely and effectively treated within the community. The patients level of risk at time of discharge is low. MSE: The patient is casually dressed and with good hygiene , and looks stated age. Patient is sitting, posture is upright, and position is relaxed. Patient appears awake, alert, and responds appropriately and reasonably during interview. Patient is engaged, relates well to interviewer, and emotional facial expression is appropriate to situation and changes appropriately with topic. Patient is cooperative, makes comfortable eye contact , and movements are voluntary, deliberate, coordinated, and smooth and even with no inappropriate movements. Patient makes laryngeal sounds effortlessly and shares conversation appropriately; pace of conversation is appropriate, and stream of talking is fluent; articulation is clear and understandable; word choice is effortless and appropriate for education level; completes sentences, occasionally pausing to think; rate and volume are appropriate for interview and setting. Patient reports mood as euthymic. Patients affect is stable with full variable range, congruent with mood, and appropriate to speech and circumstances. Patient has linear and logical thinking, with no loose associations, tangential thought, thought blocking, concrete thinking, or any other signs of formal thought disorder. Patient denies suicidal and homicidal ideation, and denies hallucinations and delusions. Patient appears to be a reliable historian with sound judgement and good insight into current condition. Patient has no apparent dysfunction in recent or remote memory noted , and no evidence of gross cognitive dysfunction noted at any point during the interview. DISCHARGE DIAGNOSES: 1. Major depressive disorder, severe. 2. Generalized anxiety disorder. 3. Stimulant use disorder. 4. Alcohol use disorder, severe. 5. 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 CURRENT MEDICATIONS: After reviewing options, risks, and benefits with the patient, the patient agrees to continue: 1. Klonopin 1 mg p.o. b.i.d. 2. Prozac 20 mg p.o. daily. 3. Gabapentin 900 mg p.o. t.i.d. 4. Seroquel 50 mg p.o. q.h.s. The patient requests prescriptions for these medications at time of discharge. Prescriptions for 30 days are provided. The prescriptions are reviewed with the patient at time of discharge to ensure accuracy and patient understanding. DISPOSITION: Patient left hospital independently and voluntarily with her mother and plans to return home with her mother. FOLLOWUP: studio coordinator reports the appropriate outpatient follow-up services have been established and outpatient appointments have been scheduled. The patient received written instructions with times and dates of outpatient follow-up appointments. The following follow-up recommendations were provided to the patient at discharge: Continue psychotropic medications as prescribed and attend appointments as scheduled. Report any side effects to a psychiatric outpatient provider, a primary care provider, or other health clinical care coordinator. Address any questions or problems concerning the psychotropic medications with a psychiatric outpatient provider, a primary care provider, or other health clinical care coordinator. Contact [facility] or [facility], or go to the nearest emergency room, if you are ever a danger to yourself/others, or unable to care for yourself. As soon as possible, establish a routine medication management treatment with a psychiatric provider, establish routine therapy appointments, and follow-up with a primary care provider. SUBSTANCE ABUSE BRIEF INTERVENTION: Brief intervention regarding the risks of cocaine and alcohol abuse is provided to patient with goal to reduce the risk of harm that could result from the continued use of cocaine and alcohol, with the general aim to investigate the problem, raise awareness of problem, develop a solution with the patient, recommend a specific change or activity, and motivate the patient toward change. Assess substance abuse behavior and give supportive advice about harm reduction, recommend a reduction in hazardous/at- risk consumption patterns, and facilitate referrals for additional specialized treatment with infant childcare provider. Intermediate goal is for the patient to quit and attend outpatient substance abuse treatment. Intervention focus on intermediate goals to allow for more immediate success in the treatment process to keep the patient motivated. Review following with patient: Alcohol/Binge Drinking risks: short-term: injuries, violence, alcohol poisoning, risky sexual behaviors. Long-term: high blood pressure, stroke, liver disease, digestive problems, cancer, learning and memory problems, depression and anxiety, social problems, and alcohol dependence. Cocaine use risks: Short-term: erratic and violent behavior, panic attacks, paranoia, psychosis; heart rhythm problems, heart attack; stroke, seizure, coma. Long-term: Loss of sense of smell, nosebleeds, nasal damage and trouble swallowing from snorting; infection and of bowel tissue from decreased blood flow; poor nutrition and weight loss ; lung damage from smoking. OUTPATIENT SUBSTANCE ABUSE TREATMENT: Patient referred to outpatient provider and treatment for continued treatment related to substance abuse. LEGAL COURSE: The patient was admitted voluntarily and remained voluntarily throughout the course of her hospitalization. The patient discharged today independently and voluntarily. ATTITUDE AT TIME OF DISCHARGE: The patients attitude was positive at time of discharge, and patient reports looking forward to discharging today. The patient reports she feels safe to discharge, is no longer a danger to herself or others, is in stable condition, and contracts for safety. Patient states she will continue medications as prescribed, and establish medication management treatment with an outpatient provider after discharge. Patient reports she understands the information that has been provided to her, and she understands, accepts, and agrees to psychotropic medications. Patient describes internal protective factors as the coping skills she has learned while hospitalized here, and she plans to continue to practice these coping skills after discharge. LABS AND RADIOLOGY STUDIES: There were no pending labs or studies at time of discharge. ADVANCE DIRECTIVES: There were no advance directives on file, and patient was full code during this hospitalization. The following psychotropic medication treatment informed consent and recommendations were provided to the patient at time of discharge. Patient reports she understands, accepts, and agrees to the information that has been provided. PSYCHOTROPIC MEDICATION TREATMENT INFORMED CONSENT and RECOMMENDATIONS: Review nature of condition, diagnosis, and prognosis. Review nature and purpose of psychotropic medication treatment. Review type of psychotropic medications being prescribed. Review risk and benefits of psychotropic medication treatment. Review probable length of time will need to take medications. Review risk and benefits of not undergoing psychotropic medication treatment. Review alternative treatments to psychotropic medications. Review psychotropic medications contraindications, side effects, and importance of reporting any side effects to a psychiatric provider, primary care provider, or other health clinical care coordinator. Review importance of her asking a psychiatric provider or primary care provider any questions or problems concerning the psychotropic medications. Review importance of reporting to a psychiatric provider, primary care provider, or other health clinical care coordinator if she plans to or becomes . Review safety plan and the importance to contact [facility] or [facility] , or go to the nearest emergency room, if ever a danger to yourself/others, or unable to care for yourself. Recommend upon discharge to establish routine medication management treatment with a psychiatric provider, establish routine therapy appointments, and follow-up with a primary care provider. Verify patient understands, accepts, and agrees to the information that has been provided. /[id number]/MODL MTDD
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
== END 2018-12-04 15:10 | disposition home or self-care (01) | DRG 885 ==
LOC: EDUNIT# → BBEH 23:22
PROVIDERS: ADMIT Psychiatry & Neurology Behavioral Neurology & Neuropsychiatry; ATTEND Psychiatry & Neurology Behavioral Neurology & Neuropsychiatry
DX: F33.3 Major depressive disorder, recurrent, severe with psychotic symptoms (principal); F41.1 Generalized anxiety disorder; F15.959 Other stimulant use, unspecified with stimulant-induced psychotic disorder, unspecified; F17.200 Nicotine dependence, unspecified, uncomplicated; G24.9 Dystonia, unspecified; Z23 Encounter for immunization; Z72.89 Other problems related to lifestyle; Z91.5 Personal history of self-harm
CPT/HCPCS: 80305; G0009; G0480

== ENCOUNTER 2019-02-20 20:14 | Emergency (ER) | payer MEDICAID | END 2019-02-21 08:35 | disposition home or self-care (01) ==